=== PATIENT | female | born 1975 | race African-American/Black ===

== ENCOUNTER 2016-05-17 18:05 | Emergency (ER) | payer OTHER ==
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
[2016-05-17] MEDS ORDERED: ASPIRIN 81 MG TABLET, CHEWABLE PO ONE (18:33)
[2016-05-17] MEDS ORDERED: ASPIRIN 81 MG TABLET, CHEWABLE ONE (18:35)
[2016-05-17 19:01] LABS: ABSOLUTE EOSINOPHILS # (AUTO) 0.1 10^3/uL (0.0-0.6); ABSOLUTE LYMPHOCYTES (AUTO) 1.8 10^3/uL (0.5-4.7); ABSOLUTE MONOCYTES (AUTO) 0.4 10^3/uL (0.1-1.4); ABSOLUTE NEUT (AUTO) 2.8 10^3/uL (1.7-8.2); BASOPHILS % (AUTO) 0.9 % (0-2); EOSINOPHILS % (AUTO) 1.3 % (0-6); HEMATOCRIT 28.7 % (36.0-47.0); HEMOGLOBIN 8.8 g/dL (12.0-15.5); HGB HCT DIFFERENCE -2.3; LYMPHOCYTES % (AUTO) 35.5 % (13-45); MEAN CORPUSCULAR HEMOGLOBIN 24.7 pg (27.0-33.4); MEAN CORPUSCULAR HGB CONC 30.8 g/dL (32.0-36.0); MEAN CORPUSCULAR VOLUME 80 fl (80-97); MONOCYTES % (AUTO) 7.1 % (3-13); RED BLOOD COUNT 3.57 10^6/uL (3.72-5.28); RED CELL DISTRIBUTION WIDTH 15.5 % (11.5-14.0); SEGMENTED NEUTROPHILS % (AUTO) 55.2 % (42-78)
[2016-05-17 19:20] LABS: ALANINE AMINOTRANSFERASE 16 U/L (9-52); ALBUMIN 4.2 g/dL (3.5-5.0); ALKALINE PHOSPHATASE 80 U/L (38-126); ANION GAP 13 (5-19); ASPARTATE AMINO TRANSFERASE 23 U/L (14-36); BILIRUBIN,TOTAL 0.8 mg/dL (0.2-1.3); BLOOD UREA NITROGEN 9 mg/dL (7-20); CALCIUM 9.7 mg/dL (8.4-10.2); CARBON DIOXIDE 27 mmol/L (22-30); CHLORIDE 101 mmol/L (98-107); CREATININE RESULT 0.98 mg/dL (0.52-1.25); GLUCOSE 92 mg/dL (75-110); POTASSIUM 3.7 mmol/L (3.6-5.0); SODIUM 140.7 mmol/L (137-145); TOTAL PROTEIN 7.6 g/dL (6.3-8.2)
[2016-05-17] MEDS ORDERED: OXYCODONE-ACETAMINOPHEN 5-325 MG TABLET PO ONE (20:40)
[2016-05-17] MEDS ORDERED: KETOROLAC TROMETHAMINE 60 MG/2 ML SDV IM ONE (20:40)
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
--- NOTE | 2016-05-17 20:54 | EKG REPORT ---
SEVERITY:- BORDERLINE ECG - SINUS RHYTHM BORDERLINE T ABNORMALITIES, INFERIOR LEADS : Confirmed by: Nolan Diaz MD 17-May-2016 20:54:27
[2016-05-17 22:59] VITALS: BP 122/88
== END 2016-05-17 22:59 | disposition home or self-care (01) ==
LOC: ER 18:05
DX: S29.9XXA Unspecified injury of thorax, initial encounter (principal); M54.2 Cervicalgia; R07.9 Chest pain, unspecified; M54.9 Dorsalgia, unspecified; V49.40XA Driver injured in collision with unspecified motor vehicles in traffic accident, initial encounter; I10 Essential (primary) hypertension; Z88.5 Allergy status to narcotic agent
CPT/HCPCS: 93005; 99284; 96374; 36415; 85025; 80053; 73610; 71020; 73090; 72125; 93010; J1885

== ENCOUNTER 2016-06-02 01:25 | Emergency (ER) | payer OTHER ==
[2016-06-02] MEDS ORDERED: OXYCODONE-ACETAMINOPHEN 5-325 MG TABLET PO ONE (02:51)
--- NOTE | 2016-06-02 02:54 | ER Document Report ---
ED Extremity Problem, Lower - General Chief Complaint: Ankle Injury Stated Complaint: RIGHT ANKLE INJURY Time seen by provider: 02:52 Mode of Arrival: Wheelchair Information source: Patient TRAVEL OUTSIDE OF THE [place] IN LAST 30 DAYS: No - HPI Patient complains to provider of: Injury, Pain Location: Ankle Occurred: Just prior to arrival Where: Home Onset/Duration: Sudden Quality of pain: Achy Severity: Moderate Pain Level: 3 Recent injury: Yes Associated symptoms: Painful ambulation Exacerbated by: Movement, Walking Relieved by: Nothing Notes: Patient is a 40-year-old female presenting to the emergency room for complaints of pain to the back of her right ankle that started just prior to arrival, states she went to stand up and felt something pop over the Achilles, has been having pain since, it is worsened by movement or ambulation, she denies any numbness or tingling to the extremity, she does report a history of a previous injury to this foot, but has never had any surgery - Related Data Allergies/Adverse Reactions: hydrocodone Allergy (Verified 06/02/16 01:34) Past Medical History - General Information source: Patient - Social History Smoking Status: Never Smoker Chew tobacco use (# tins/day): No Frequency of alcohol use: None Drug Abuse: None Family History: Reviewed & Not Pertinent Patient has suicidal ideation: No Patient has homicidal ideation: No - Past Medical History Cardiac Medical History: Reports: Hx Hypertension Renal/ Medical History: Denies: Hx Peritoneal Dialysis Past Surgical History: Reports: Hx Cholecystectomy - Immunizations Immunizations up to date: Yes Hx Diphtheria, Pertussis, Tetanus Vaccination: Yes Review of Systems - Review of Systems Constitutional: No symptoms reported EENT: No symptoms reported Cardiovascular: No symptoms reported Respiratory: No symptoms reported Gastrointestinal: No symptoms reported Genitourinary: No symptoms reported Female Genitourinary: No symptoms reported Musculoskeletal: See HPI Skin: No symptoms reported Hematologic/Lymphatic: No symptoms reported Neurological/Psychological: No symptoms reported -: Yes All other systems reviewed and negative Physical Exam - Vital signs Vitals: Temp Pulse Resp BP Pulse Ox 98.5 F 100 18 137/89 H 100 06/02/16 01:35 06/02/16 01:35 06/02/16 01:35 06/02/16 01:35 06/02/16 01:35 Interpretation: Normal - Notes Notes: - General General appearance: Appears well, Alert In distress: None - HEENT Head: Normocephalic, Atraumatic Eyes: Normal Conjunctiva: Normal Extraocular movements intact: Yes Eyelashes: Normal Pupils: PERRL - Respiratory Respiratory status: No respiratory distress - Cardiovascular Rhythm: Regular - Abdominal Inspection: Normal - Back Back: Normal - Extremities General upper extremity: Normal inspection General lower extremity: Patient with tenderness to palpate over the l right Achilles tendon, there is no deformity, there is mild swelling, pain with range of motion testing, distal sensation and motor is intact with 2+ DP pulses - Neurological Neuro grossly intact: Yes Orientation: AAOx4 [place] Coma Scale Eye Opening: Spontaneous [place] Coma Scale Verbal: Oriented Moises Coma Scale Motor: Obeys Commands [place] Coma Scale Total: 15 - Psychological Associated symptoms: Normal affect, Normal mood - Skin Skin Temperature: Warm Skin Moisture: Dry Skin Color: Normal Course - Re-evaluation Re-evalutation: 06/02/16 03:37 Imaging findings were reviewed with patient at bedside, she was placed in a posterior ankle splint, provided with pain medication and information for follow -up with orthopedics, patient was advised to ice and elevate the affected extremity, limit weightbearing, return if symptoms worsen, patient acknowledges understanding and agreement with this plan - Vital Signs Vital signs: Temp Pulse Resp BP Pulse Ox 97.8 F 95 18 130/90 H 100 06/02/16 03:27 06/02/16 03:27 06/02/16 03:27 06/02/16 03:27 06/02/16 03:27 - Diagnostic Test Radiology reviewed: Image reviewed, Reports reviewed Procedures - Immobilization Right Ankle Time completed: 03:38 Pre-Proc Neuro Vasc Exam: Normal Immobilizer type: Posterior ankle Performed by: PCT Post-Proc Neuro Vasc Exam: Normal Alignment checked and good: Yes Discharge - Discharge Clinical Impression: Achilles tendinitis, left leg Condition: Stable Disposition: HOME, SELF-CARE Instructions: Use of Crutches ([facility]), Ice & Elevation ([facility]), Oral Narcotic Medication ([facility]), Soft Ankle Splint ([facility]), Tendonitis ([facility]) Additional Instructions: Follow up with your primary care provider and an orthopedic surgeon in one to 2 days. Return to the emergency room immediately if symptoms worsen or any additional concerns. Ice and elevate the affected extremity. Limit weightbearing. Prescriptions: Oxycodone HCl/Acetaminophen [Percocet 5-325 mg Tablet] 1 - 2 tab PO ASDIR PRN # 20 tablet PRN Reason: Forms: Return to Work Referrals: ANTON MURCIA MD [ACTIVE STAFF] - Follow up as needed
[2016-06-02 03:35] VITALS: BP 130/90
== END 2016-06-02 03:27 | disposition home or self-care (01) ==
LOC: ER 01:25
PROC: 2W3QX1Z Immobilization of Right Lower Leg using Splint (ICD-10-PCS; principal; 2016-06-02)
DX: M76.61 Achilles tendinitis, right leg (principal); I10 Essential (primary) hypertension; Z90.49 Acquired absence of other specified parts of digestive tract
CPT/HCPCS: 99283

== ENCOUNTER 2016-06-06 14:32 | Emergency (ER) | payer SELFPAY ==
--- NOTE | 2016-06-06 14:59 | ER Document Report ---
ED Medical Screen (RME) - General Chief Complaint: Ankle Pain Stated Complaint: ANKLE PAIN Notes: patient got out of bed on friday and felt a pop in her right ankle,has had pain and swelling since then. able to bear weight, rom intact I have greeted and performed a rapid initial assessment of this patient. A comprehensive ED assessment and evaluation of the patient, analysis of test results and completion of the medical decision making process will be conducted by additional ED providers. TRAVEL OUTSIDE OF THE [place] IN LAST 30 DAYS: No - Related Data Allergies/Adverse Reactions: hydrocodone Allergy (Verified 06/06/16 14:57) Past Medical History - Past Medical History Cardiac Medical History: Reports: Hx Hypertension Renal/ Medical History: Denies: Hx Peritoneal Dialysis Past Surgical History: Reports: Hx Cholecystectomy - Immunizations Immunizations up to date: Yes Hx Diphtheria, Pertussis, Tetanus Vaccination: Yes Physical Exam - Vital signs Vitals: Temp Pulse Resp BP Pulse Ox 98.6 F 86 16 138/86 H 100 06/06/16 14:52 06/06/16 14:52 06/06/16 14:52 06/06/16 14:52 06/06/16 14:52 Course - Vital Signs Vital signs: Temp Pulse Resp BP Pulse Ox 98.6 F 86 16 138/86 H 100 06/06/16 14:52 06/06/16 14:52 06/06/16 14:52 06/06/16 14:52 06/06/16 14:52
[2016-06-06] MEDS ORDERED: IBUPROFEN 800 MG TABLET PO ONE (15:00)
--- NOTE | 2016-06-06 16:03 | ER Document Report ---
ED Extremity Problem, Lower - General Time seen by provider: 16:05 Mode of Arrival: Wheelchair Information source: Patient TRAVEL OUTSIDE OF THE [place] IN LAST 30 DAYS: No - HPI Patient complains to provider of: Pain, Swelling Location: Ankle, Foot Occurred: Other - see HPI note Recent injury: Yes Associated symptoms: [place] a pop, Painful ambulation <MATTHEW LANE - Last Filed: 06/06/16 19:00> <JOLEEN LOPES - Last Filed: 06/06/16 22:55> - General Chief Complaint: Ankle Pain Stated Complaint: ANKLE PAIN Notes: Patient is a 40-year-old female presenting to the emergency department with complaints of pain to her right ankle and foot. Patient states that she stood up on her foot and she felt/heard a pop. Patient states that it came from the back of her foot where her Achilles is located. Patient states that she previously injured this foot and had to wear a splint, orthopedic boot, and a hard cast. Patient states that she is having some swelling and pain associated with the injury. Patient has an orthopedic to follow up with from her previous injury. Patient is allergic to hydrocodone. (MATTHEW LANE) - Related Data Allergies/Adverse Reactions: hydrocodone Allergy (Verified 06/06/16 14:57) Past Medical History - General Information source: Patient, [facility] Records - Social History Smoking Status: Never Smoker Chew tobacco use (# tins/day): No Frequency of alcohol use: None Drug Abuse: None Family History: None Patient has suicidal ideation: No Patient has homicidal ideation: No - Past Medical History Cardiac Medical History: Reports: Hx Hypertension Past Surgical History: Reports: Hx Cholecystectomy - Immunizations Immunizations up to date: Yes Hx Diphtheria, Pertussis, Tetanus Vaccination: Yes <MATTHEW LANE - Last Filed: 06/06/16 19:00> Review of Systems - Review of Systems Constitutional: No symptoms reported EENT: No symptoms reported Cardiovascular: No symptoms reported Respiratory: No symptoms reported Gastrointestinal: No symptoms reported Genitourinary: No symptoms reported Female Genitourinary: No symptoms reported Musculoskeletal: See HPI Skin: No symptoms reported Hematologic/Lymphatic: No symptoms reported Neurological/Psychological: No symptoms reported -: Yes All other systems reviewed and negative <MATTHEW LANE - Last Filed: 06/06/16 19:00> Physical Exam - Vital signs Interpretation: Normal - General General appearance: Appears well, Alert In distress: Mild - HEENT Head: Normocephalic, Atraumatic Eyes: Normal Pupils: PERRL Mucous membranes: Moist - Respiratory Respiratory status: No respiratory distress - Cardiovascular Rhythm: Regular - Abdominal Inspection: Normal Distension: No distension Bowel sounds: Normal Tenderness: Nontender Organomegaly: No organomegaly - Back Back: Normal, Nontender - Extremities General upper extremity: Normal inspection, Normal ROM, Normal strength Ankle: Other - tenderness to palpation over the right Achilles - Neurological Neuro grossly intact: Yes Cognition: Normal Orientation: AAOx4 [place] Coma Scale Eye Opening: Spontaneous [place] Coma Scale Verbal: Oriented [place] Coma Scale Motor: Obeys Commands [place] Coma Scale Total: 15 Speech: Normal Sensory: Normal - Psychological Associated symptoms: Normal affect, Normal mood - Skin Skin Temperature: Warm Skin Moisture: Dry <MATTHEW LANE - Last Filed: 06/06/16 19:00> Course <MATTHEW LANE - Last Filed: 06/06/16 19:00> - Diagnostic Test Radiology reviewed: Image reviewed, Reports reviewed <JOLEEN LOPES - Last Filed: 06/06/16 22:55> - Re-evaluation Re-evalutation: 06/06/16 Patient with no acute findings on x-ray. Patient has full range of motion although has pain over her Achilles. Patient has a boot at home. She is instructed to put that on and follow up with her orthopedic doctor that she has seen before for this issue. Patient will be discharged home with pain medication. Understands and agrees with plan. Stable for discharge home. (JOLEEN LOPES) - Vital Signs Vital signs: Temp Pulse Resp BP Pulse Ox 98.2 F 81 18 137/88 H 100 06/06/16 16:35 06/06/16 16:35 06/06/16 16:35 06/06/16 16:35 06/06/16 16:35 ([address]) (JOLEEN LOPES) Discharge <MATTHEW LANE - Last Filed: 06/06/16 19:00> <JOLEEN LOPES - Last Filed: 06/06/16 22:55> - Discharge Clinical Impression: Achilles tendinitis Qualifiers: Laterality: right Qualified Code(s): M76.61 - Achilles tendinitis, right leg Condition: Stable Disposition: HOME, SELF-CARE Instructions: Tendonitis ([facility]) Prescriptions: Tramadol HCl [Ultram] 50 mg PO BIDP PRN #20 tablet PRN Reason: Forms: Return to Work Referrals: LEONID CARTER MD [ACTIVE STAFF] - Follow up as needed Scribe Attestation: 06/06/16 22:54 I personally performed the services described in the documentation, reviewed and edited the documentation which was dictated to the scribe in my presence, and it accurately records my words and actions. (JOLEEN LOPES) Scribe Documentation - Scribe Written by Scribe:: Matthew Lane 06/06/16 19:04 acting as scribe for :: Jackson <MATTHEW LANE - Last Filed: 06/06/16 19:00>
[2016-06-06] MEDS ORDERED: OXYCODONE-ACETAMINOPHEN 5-325 MG TABLET PO ONE (16:16)
[2016-06-06 16:46] VITALS: BP 137/88
== END 2016-06-06 16:40 | disposition home or self-care (01) ==
LOC: ER 14:32
DX: M76.61 Achilles tendinitis, right leg (principal); M25.571 Pain in right ankle and joints of right foot; I10 Essential (primary) hypertension; Z90.49 Acquired absence of other specified parts of digestive tract; Z88.6 Allergy status to analgesic agent
CPT/HCPCS: 99283

== ENCOUNTER 2016-06-08 20:09 | Emergency (ER) | payer SELFPAY ==
[2016-06-08 20:27] VITALS: BP 143/83
--- NOTE | 2016-06-08 21:40 | ER Document Report ---
HPI - HPI Patient complains to provider of: ankle pain Context: Patient is a 40-year-old female who was seen here last Friday after she got out of bed and felt a pop in her ankle. Patient states that she is a previous Achilles tendon injury on her right ankle. She was seen and evaluated in emergency department told to wear a boot and follow-up with orthopedics. Patient states that she has not been able to get in to see orthopedics sent in the main reason she arrived to return to the emergency department tonight was that she needs a workup. Otherwise she states that her ears ankle is feeling better that she's been following her instructions and she's been able to drive without any difficulties. - REPRODUCTIVE Reproductive: DENIES: : Past Medical History - Social History Smoking Status: Current Every Day Smoker Family History: None - Past Medical History Cardiac Medical History: Reports: Hx Hypertension Renal/ Medical History: Denies: Hx Peritoneal Dialysis Past Surgical History: Reports: Hx Cholecystectomy - Immunizations Immunizations up to date: Yes Hx Diphtheria, Pertussis, Tetanus Vaccination: Yes Vertical Provider Document - CONSTITUTIONAL Exam Limitations: No Limitations General Appearance: WD/WN, No Apparent Distress - INFECTION CONTROL TRAVEL OUTSIDE OF THE [place] IN LAST 30 DAYS: No - RESPIRATORY O2 Sat by Pulse Oximetry: 99 - CARDIOVASCULAR Pulses: Normal: Dorsalis pedis - MUSCULOSKELETAL/EXTREMETIES Musculoskeletal/Extremeties: MAEW, FROM, Non-Tender, No Edema - NEURO Level of Consciousness: Awake, Alert, Appropriate Motor/Sensory: No Motor Deficit, No Sensory Deficit Course - Re-evaluation Re-evalutation: 06/08/16 21:34 Patient denies any new injury to that ankle or foot. She is able to bear weight without any difficulties and otherwise physical exam is benign. No indications for additional imaging at this time given no new injury or no new complaint. Will discharge patient home with a work note and can follow-up with orthopedics as scheduled. - Vital Signs Vital signs: Temp Pulse Resp BP Pulse Ox 98.3 F 73 20 143/83 H 99 06/08/16 20:25 06/08/16 20:25 06/08/16 20:25 06/08/16 20:25 06/08/16 20:25 Discharge - Discharge Clinical Impression: Ankle pain Qualifiers: Laterality: right Chronicity: acute Qualified Code(s): M25.571 - Pain in right ankle and joints of right foot Condition: Good Disposition: HOME, SELF-CARE Instructions: Jayson Wrap ([facility]), Use of Crutches ([facility]), Ice & Elevation ([facility]) Additional Instructions: Able to return to work without any restrictions or limitations. Please follow-up with orthopedics as scheduled. Forms: Work Clearance, Return to Work Referrals: LEONID CARTER MD [ACTIVE STAFF] - Follow up as needed
== END 2016-06-08 21:43 | disposition home or self-care (01) ==
LOC: ER 20:09
DX: M25.571 Pain in right ankle and joints of right foot (principal); X58.XXXA Exposure to other specified factors, initial encounter
CPT/HCPCS: 99283

== ENCOUNTER 2016-07-11 17:08 | Emergency (ER) | payer MEDICAID ==
[2016-07-11] MEDS ORDERED: IBUPROFEN 800 MG TABLET PO ONE (17:39)
--- NOTE | 2016-07-11 17:39 | ER Document Report ---
ED Medical Screen (RME) - General Stated Complaint: FEVER Time seen by provider: 17:38 Mode of Arrival: Ambulatory Information source: Patient Notes: 40-year-old female presents to ED for fever or chills body aches runny nose and cough 2 days. Temperature in the RME is 101.9. Last menstrual period was I have greeted and performed a rapid initial assessment of this patient. A comprehensive ED assessment and evaluation of the patient, analysis of test results and completion of medical decision making process will be conducted by an additional ED providers. TRAVEL OUTSIDE OF THE [place] IN LAST 30 DAYS: No - Related Data Allergies/Adverse Reactions: hydrocodone Allergy (Verified 06/06/16 14:57) Past Medical History - Past Medical History Cardiac Medical History: Reports: Hx Hypertension Renal/ Medical History: Denies: Hx Peritoneal Dialysis Past Surgical History: Reports: Hx Cholecystectomy - Immunizations Immunizations up to date: Yes Hx Diphtheria, Pertussis, Tetanus Vaccination: Yes Physical Exam - Vital signs Vitals: Temp Pulse Resp BP Pulse Ox 101.9 F H 112 H 18 149/91 H 100 07/11/16 17:13 07/11/16 17:13 07/11/16 17:13 07/11/16 17:13 07/11/16 17:13 Course - Vital Signs Vital signs: Temp Pulse Resp BP Pulse Ox 101.9 F H 112 H 18 149/91 H 100 07/11/16 17:13 07/11/16 17:13 07/11/16 17:13 07/11/16 17:13 07/11/16 17:13
[2016-07-11 18:41] LABS: APPEARANCE,URINE CLEAR; BILIRUBIN,URINE NEGATIVE (NEGATIVE); GLUCOSE, URINE NEGATIVE (NEGATIVE); KETONES,URINE NEGATIVE (NEGATIVE); LEUKOCYTE ESTERASE,URINE TRACE (NEGATIVE); NITRITE,URINE NEGATIVE (NEGATIVE); PROTEIN,URINE NEGATIVE (NEGATIVE); URINE SPECIFIC GRAVITY 1.005
--- NOTE | 2016-07-11 18:52 | ER Document Report ---
ED Flu Like - General Chief Complaint: Pain All Over Stated Complaint: FEVER Mode of Arrival: Ambulatory Notes: The patient is a 40-year-old female who presents with 2 days of body aches, fevers, chills, dry cough, cough and chest pain when she coughs. She did not get the flu shot this year. Her had similar symptoms. She denies rash , urinary symptoms, difficulty swallowing, recent travel, sick contacts, nausea , vomiting or abdominal pain. TRAVEL OUTSIDE OF THE [place] IN LAST 30 DAYS: No - Related Data Allergies/Adverse Reactions: hydrocodone Allergy (Verified 07/11/16 17:39) Past Medical History - General Information source: Patient - Social History Smoking Status: Never Smoker Chew tobacco use (# tins/day): No Frequency of alcohol use: None Drug Abuse: None Family History: None Patient has suicidal ideation: No Patient has homicidal ideation: No - Past Medical History Cardiac Medical History: Reports: Hx Hypertension Renal/ Medical History: Denies: Hx Peritoneal Dialysis Past Surgical History: Reports: Hx Cholecystectomy - Immunizations Immunizations up to date: Yes Hx Diphtheria, Pertussis, Tetanus Vaccination: Yes Review of Systems - Review of Systems Notes: REVIEW OF SYSTEMS: CONSTITUTIONAL: +fevers, +chills EENT: -eye pain, -difficulty swallowing, -nasal congestion CARDIOVASCULAR: +chest pain, -syncope. RESPIRATORY: +cough, +SOB GASTROINTESTINAL: -abdominal pain, -nausea, -vomiting, -diarrhea GENITOURINARY: -dysuria, -hematuria MUSCULOSKELETAL: -back pain, -neck pain SKIN: -rash or skin lesions. HEMATOLOGIC: -easy bruising or bleeding. LYMPHATIC: -swollen, enlarged glands. NEUROLOGICAL: -altered mental status or loss of consciousness, -headache, - neurologic symptoms PSYCHIATRIC: -anxiety, -depression. ALL OTHER SYSTEMS REVIEWED AND NEGATIVE. Physical Exam - Vital signs Vitals: Temp Pulse Resp BP Pulse Ox 101.9 F H 112 H 18 149/91 H 100 07/11/16 17:13 07/11/16 17:13 07/11/16 17:13 07/11/16 17:13 07/11/16 17:13 - Notes Notes: PHYSICAL EXAMINATION: GENERAL: No acute distress. HEAD: Atraumatic, normocephalic. EYES: Pupils equal round and reactive to light, extraocular movements intact, sclera anicteric, conjunctiva are normal. ENT: nares patent, oropharynx clear without exudates. Moist mucous membranes. NECK: Normal range of motion, supple without lymphadenopathy LUNGS: Breath sounds clear to auscultation bilaterally and equal. No wheezes rales or rhonchi. No respiratory distress. HEART: Tachycardia. ABDOMEN: Soft, nontender, normoactive bowel sounds. No guarding, no rebound. No masses appreciated. EXTREMITIES: Normal range of motion, no pitting or edema. No cyanosis. NEUROLOGICAL: Cranial nerves grossly intact. Normal speech, normal gait. Normal sensory, motor, and reflex exams. PSYCH: Normal mood, normal affect. SKIN: Warm, Dry, normal turgor, no rashes or lesions noted. Course - Re-evaluation Re-evalutation: Patient's symptoms consistent with viral illness. EKG and chest x-ray do not show any acute abnormalities. She is tolerating fluids. Flu negative. Instructed her about symptomatic treatment with fluids and antipyretics and following up at her primary care physician. Given strict return precautions and she understands. - Vital Signs Vital signs: Temp Pulse Resp BP Pulse Ox 101.9 F H 112 H 20 149/91 H 100 07/11/16 17:13 07/11/16 17:13 07/11/16 18:42 07/11/16 17:13 07/11/16 17:13 - Laboratory Laboratory results interpreted by me: 07/11/16 18:05 Urine Urobilinogen 2.0 H Ur Leukocyte Esterase TRACE H - Diagnostic Test Radiology reviewed: Image reviewed, Reports reviewed Radiology results interpreted by me: CXR: NAD - EKG Interpretation by [place] EKG shows normal: Sinus rhythm, [place], Intervals, QRS Complexes, ST-T Waves Rate: Tachycardia Discharge - Discharge Clinical Impression: Viral illness Condition: Stable Disposition: HOME, SELF-CARE Additional Instructions: UPPER RESPIRATORY ILLNESS: You have a viral infection of the respiratory passages -- a "cold." This common infection causes nasal congestion, drainage, and often sore throat and cough. It is highly contagious. The disease usually lasts about 10 to 14 days. There is no "cure" for the viral infection -- it must run its course. If there is a complication, such as bacterial infection in the nose, sinuses, middle ear, or bronchial tubes, antibiotics may be required. The antibiotics won't affect the virus. Drink plenty of fluids. A humidifier may help. An expectorant medication or decongestant may make you more comfortable. Use acetaminophen or ibuprofen for fever or aches. See the doctor if fever persists over two days, if there is any significant worsening of your symptoms, or if you simply fail to improve as expected. COUGH-SUPPRESSANT & EXPECTORANT MEDICATION: You are to use a cough medication as needed for relief of symptoms. This medicine is a combination of an expectorant (to make the mucous thinner and more easily "coughed up") and a cough suppressant (to reduce the frequency of coughing). The cough-suppressant medicine is related to narcotics. You may experience mild nausea and sleepiness. Some patients who are very sensitive to narcotics may have stomach pain from this medicine. Taking the medicine with food reduces these side effects. Do not drive or work with machinery until you know how this medicine affects you. The expectorant should have no side effects. Iodine-containing expectorants (such as organidin) should not be taken by persons with active thyroid disease unless approved by your doctor. Call the doctor if you develop shortness of breath, hives, rash, itching, lightheadedness, or severe nausea and vomiting. USE OF ACETAMINOPHEN (Tylenol): Acetaminophen may be taken for pain relief or fever control. It's much safer than aspirin, offering a wider range of "safe" dosages. It is safe during . Some brand names are Tylenol, Panadol, Datril, Anacin 3, Tempra, and Liquiprin. Acetaminophen can be repeated every four hours. The following are maximum recommended dosages: >89 pounds or adults 650 mg to 900 mg Acetaminophen can be repeated every four hours. Maximum dose not to exceed 4000 mg a day. SMOKING: If you smoke, you should stop smoking. The tar and chemicals in cigarette smoke are harmful. Smoking has been shown to cause: emphysema chronic bronchitis lung cancer mouth and throat cancer stomach and pancreas cancer premature aging defects In addition, smoking increases ear and lung infections in children of smokers. FOLLOW-UP CARE: If you have been referred to a physician for follow-up care, call the physician s office for an appointment as you were instructed or within the next two days. If you experience worsening or a significant change in your symptoms, notify the physician immediately or return to the Emergency Department at any time for re-evaluation.
[2016-07-11 19:19] VITALS: BP 132/85
--- NOTE | 2016-07-12 05:35 | EKG REPORT ---
SEVERITY:- ABNORMAL ECG - SINUS TACHYCARDIA PROBABLE LEFT ATRIAL ABNORMALITY NONSPECIFIC T ABNORMALITIES, INFERIOR LEADS : Confirmed by: Eve Nguyen MD 12-Jul-2016 05:34:51
== END 2016-07-11 19:19 | disposition home or self-care (01) ==
LOC: ER 17:08
DX: M79.1 Myalgia (principal); B34.9 Viral infection, unspecified; R50.9 Fever, unspecified; R05 Cough; R07.9 Chest pain, unspecified; I10 Essential (primary) hypertension; Z88.6 Allergy status to analgesic agent
CPT/HCPCS: 71020; 81001; 87070; 87804; 87880; 93005; 93010; 99284

== ENCOUNTER 2016-11-12 22:31 | Emergency (ER) | payer MEDICAID, OTHER ==
--- NOTE | 2016-11-12 23:11 | RADIOLOGY REPORT (SQ) ---
EXAM DESCRIPTION: ANKLE RIGHT COMPLETE COMPLETED DATE/TIME: 11/12/2016 11:02 pm REASON FOR STUDY: pain s/p injury COMPARISON: None. NUMBER OF VIEWS: Three views. TECHNIQUE: AP, lateral, and oblique radiographic images acquired of the right ankle. LIMITATIONS: None. FINDINGS: MINERALIZATION: Normal. BONES: No acute fracture or dislocation. No worrisome bone lesions. JOINTS: No effusions. SOFT TISSUES: No soft tissue swelling. No foreign body. OTHER: No other significant finding. IMPRESSION: NEGATIVE STUDY OF THE RIGHT ANKLE. NO RADIOGRAPHIC EVIDENCE OF ACUTE INJURY. TECHNICAL DOCUMENTATION: JOB ID: [id number] [employer] All Rights Reserved
--- NOTE | 2016-11-12 23:12 | RADIOLOGY REPORT (SQ) ---
EXAM DESCRIPTION: FOOT RIGHT COMPLETE COMPLETED DATE/TIME: 11/12/2016 11:02 pm REASON FOR STUDY: pain s/p injury COMPARISON: None. NUMBER OF VIEWS: Three views. TECHNIQUE: AP, lateral and oblique radiographic images acquired of the right foot. LIMITATIONS: None. FINDINGS: MINERALIZATION: Normal. BONES: No acute fracture or dislocation. No worrisome bone lesions. JOINTS: No effusions. SOFT TISSUES: No soft tissue swelling. No foreign body. Calcification Achilles tendon OTHER: No other significant finding. IMPRESSION: NEGATIVE STUDY OF THE RIGHT FOOT. NO RADIOGRAPHIC EVIDENCE OF ACUTE INJURY. TECHNICAL DOCUMENTATION: JOB ID: [id number] [employer]- All Rights Reserved
[2016-11-13] MEDS ORDERED: OXYCODONE-ACETAMINOPHEN 5-325 MG TABLET PO ONE (01:50)
--- NOTE | 2016-11-13 01:54 | ER Document Report ---
ED Extremity Problem, Lower - General Chief Complaint: Foot Pain Stated Complaint: RIGHT FOOT SWOLLEN Time Seen by Provider: 11/13/16 01:26 Mode of Arrival: Ambulatory Information source: Patient TRAVEL OUTSIDE OF THE [place] IN LAST 30 DAYS: No - HPI Patient complains to provider of: Injury, Pain, Swelling Location: Ankle, Foot Occurred: This evening Onset/Duration: Sudden Quality of pain: Achy Severity: Moderate Pain Level: 3 Context: Twisted Recent injury: Yes Associated symptoms: Painful ambulation Exacerbated by: Movement, Walking Relieved by: Nothing Notes: Patient is a 41-year-old female who presents to the emergency room complaining of right ankle and foot pain and swelling, states earlier this evening she stepped off of a curb and twisted her ankle, has a history of previous injury to this ankle, denies injury or pain elsewhere - Related Data Allergies/Adverse Reactions: hydrocodone Allergy (Verified 07/11/16 17:39) tramadol Allergy (Verified 11/12/16 22:52) Past Medical History - General Information source: Patient - Social History Smoking Status: Never Smoker Family History: None - Past Medical History Cardiac Medical History: Reports: Hx Hypertension Renal/ Medical History: Denies: Hx Peritoneal Dialysis Past Surgical History: Reports: Hx Cholecystectomy - Immunizations Immunizations up to date: Yes Hx Diphtheria, Pertussis, Tetanus Vaccination: Yes Review of Systems - Review of Systems Constitutional: No symptoms reported EENT: No symptoms reported Cardiovascular: No symptoms reported Respiratory: No symptoms reported Gastrointestinal: No symptoms reported Genitourinary: No symptoms reported Female Genitourinary: No symptoms reported Musculoskeletal: See HPI Skin: No symptoms reported Hematologic/Lymphatic: No symptoms reported Neurological/Psychological: No symptoms reported -: Yes All other systems reviewed and negative Physical Exam - Vital signs Vitals: Temp Pulse Resp BP Pulse Ox 98.1 F 82 16 145/89 H 100 11/12/16 22:48 11/12/16 22:48 11/12/16 22:48 11/12/16 22:48 11/12/16 22:48 - Notes Notes: - General General appearance: Appears well, Alert In distress: None - HEENT Head: Normocephalic, Atraumatic Eyes: Normal Conjunctiva: Normal Extraocular movements intact: Yes Eyelashes: Normal Pupils: PERRL - Respiratory Respiratory status: No respiratory distress - Cardiovascular Rhythm: Regular - Abdominal Inspection: Normal - Back Back: Normal - Extremities General upper extremity: Normal inspection General lower extremity: Right ankle with tenderness, swelling to the lateral malleolus, pain with range of motion testing, also mild swelling and tenderness over the Achilles, patient does have full range of motion with minimal pain, 2+ DP pulses, distal sensation and motor is intact - Neurological Neuro grossly intact: Yes Orientation: AAOx4 Moises Coma Scale Eye Opening: Spontaneous Moises Coma Scale Verbal: Oriented Moises Coma Scale Motor: Obeys Commands Moises Coma Scale Total: 15 - Psychological Associated symptoms: Normal affect, Normal mood - Skin Skin Temperature: Warm Skin Moisture: Dry Skin Color: Normal Course - Re-evaluation Re-evalutation: 11/13/16 01:52 Imaging findings were discussed with patient at bedside which are unremarkable, symptoms are consistent with ankle sprain, patient was placed in a posterior ankle splint, provided with pain medication and advised to follow-up with orthopedics, patient acknowledges understanding and agreement with this plan - Vital Signs Vital signs: Temp Pulse Resp BP Pulse Ox 98.1 F 82 16 145/89 H 100 11/12/16 22:48 11/12/16 22:48 11/12/16 22:48 11/12/16 22:48 11/12/16 22:48 - Diagnostic Test Radiology reviewed: Image reviewed, Reports reviewed Procedures - Immobilization Right Ankle Time completed: 01:53 Pre-Proc Neuro Vasc Exam: Normal Immobilizer type: Posterior ankle Performed by: PCT Post-Proc Neuro Vasc Exam: Normal Alignment checked and good: Yes Discharge - Discharge Clinical Impression: Right ankle sprain Qualifiers: Encounter type: initial encounter Involved ligament of ankle: unspecified ligament Qualified Code(s): S93.401A - Sprain of unspecified ligament of right ankle, initial encounter Condition: Stable Disposition: HOME, SELF-CARE Instructions: Ice Packs ([facility]), Oral Narcotic Medication ([facility]), Sprained Ankle ( [facility]), Splint Precautions ([facility]) Additional Instructions: Follow up with your primary care provider and an orthopedic surgeon in one to 2 days. Return to the emergency room immediately if symptoms worsen or any additional concerns. Ice and elevate the affected extremity. Limit weightbearing. Prescriptions: Oxycodone HCl/Acetaminophen [Percocet 5-325 mg Tablet] 1 - 2 tab PO ASDIR PRN # 15 tablet PRN Reason:
[2016-11-13 02:09] VITALS: BP 116/71
== END 2016-11-13 02:23 | disposition home or self-care (01) ==
LOC: ER 22:31
PROC: 2W3QX1Z Immobilization of Right Lower Leg using Splint (ICD-10-PCS; principal; 2016-11-12)
DX: S93.401A Sprain of unspecified ligament of right ankle, initial encounter (principal); M25.571 Pain in right ankle and joints of right foot; M79.671 Pain in right foot; X50.1XXA Overexertion from prolonged static or awkward postures, initial encounter; Y92.480 Sidewalk as the place of occurrence of the external cause; I10 Essential (primary) hypertension; Z88.5 Allergy status to narcotic agent
CPT/HCPCS: 99283

== ENCOUNTER 2017-02-24 18:54 | Emergency (ER) | payer SELFPAY ==
--- NOTE | 2017-02-24 20:10 | ER Document Report ---
HPI - HPI Patient complains to provider of: Right ankle pain Pain Level: 5 Context: Patient is a 41-year-old female who comes emergency department for chief complaint of right ankle and foot pain. She states that 2 days ago she accidentally inverted the foot when stepping off the curb, she reports shooting pains in the foot and some soft tissue swelling. She denies any other locations of pain including knee, hip, back. She takes no daily medications other than iron for anemia. - REPRODUCTIVE Reproductive: DENIES: : - DERM Skin Color: Normal Past Medical History - General Information source: Patient - Social History Smoking Status: Never Smoker Frequency of alcohol use: None Drug Abuse: None Lives with: Family Family History: None Patient has suicidal ideation: No Patient has homicidal ideation: No - Past Medical History Cardiac Medical History: Reports: Hx Hypertension Renal/ Medical History: Denies: Hx Peritoneal Dialysis Past Surgical History: Reports: Hx Cholecystectomy - Immunizations Immunizations up to date: Yes Hx Diphtheria, Pertussis, Tetanus Vaccination: Yes Vertical Provider Document - CONSTITUTIONAL General Appearance: WD/WN, No Apparent Distress - INFECTION CONTROL TRAVEL OUTSIDE OF THE [place] IN LAST 30 DAYS: No - HEENT HEENT: Atraumatic, Normocephalic - NECK Neck: Normal Inspection - RESPIRATORY Respiratory: Breath Sounds Normal, No Respiratory Distress O2 Sat by Pulse Oximetry: 100 - CARDIOVASCULAR Cardiovascular: Regular Rate, Regular Rhythm - GI/ABDOMEN Gastrointestinal: Abdomen Soft, Abdomen Non-Tender - MUSCULOSKELETAL/EXTREMETIES Musculoskeletal/Extremeties: Tender - Tenderness over the lateral malleolus, dorsal foot, and slightly at the insertion point of the plantar tendon on the right foot. No significant soft tissue swelling noted, no ecchymosis, no abnormal erythema, normal dorsalis pedis is palpated, normal capillary refill and sensation. Normal leg, knee, hip exam. Course - Vital Signs Vital signs: Temp Pulse Resp BP Pulse Ox 98.6 F 87 18 100 02/24/17 19:12 02/24/17 19:12 02/24/17 19:12 02/24/17 19:12 - Diagnostic Test Radiology reviewed: Image reviewed, Reports reviewed Procedures - Immobilization right ankle/foot Pre-Proc Neuro Vasc Exam: Normal Immobilizer type: Jayson wrap Performed by: RN Post-Proc Neuro Vasc Exam: Normal Alignment checked and good: Yes Discharge - Discharge Clinical Impression: Right ankle injury Qualifiers: Encounter type: initial encounter Qualified Code(s): S99.911A - Unspecified injury of right ankle, initial encounter Condition: Stable Disposition: HOME, SELF-CARE Additional Instructions: Your x-rays do not show fracture or other abnormality. Your examination is consistent with a sprain of the right ankle ligaments, recommendation is to ice 3-4 times a day, use the crutches and Jayson wrap, use the anti-inflammatory, and elevate your foot. Do this for about 3 days and then progress to normal activity as tolerated. Follow-up with primary care. Return to emergency department for any concerning symptoms including severe swelling or pain. Prescriptions: Naproxen [Naprosyn 375 Mg Tablet] 375 mg PO BID #20 tablet Forms: Return to Work Referrals: LETI CRAIG DO [Primary Care Provider] - Follow up as needed
--- NOTE | 2017-02-24 20:56 | RADIOLOGY REPORT (SQ) ---
EXAM DESCRIPTION: FOOT RIGHT COMPLETE COMPLETED DATE/TIME: 02/24/2017 8:28 pm REASON FOR STUDY: inversion injury, pain COMPARISON: None. NUMBER OF VIEWS: Three views. TECHNIQUE: AP, lateral and oblique radiographic images acquired of the right foot. LIMITATIONS: None. FINDINGS: MINERALIZATION: Normal. BONES: No acute fracture or dislocation. No worrisome bone lesions. JOINTS: No effusions. SOFT TISSUES: No soft tissue swelling. No foreign body. OTHER: No other significant finding. IMPRESSION: NEGATIVE STUDY OF THE RIGHT FOOT. NO RADIOGRAPHIC EVIDENCE OF ACUTE INJURY. TECHNICAL DOCUMENTATION: JOB ID: [id number] [employer]- All Rights Reserved
--- NOTE | 2017-02-24 20:59 | RADIOLOGY REPORT (SQ) ---
EXAM DESCRIPTION: ANKLE RIGHT COMPLETE COMPLETED DATE/TIME: 02/24/2017 8:28 pm REASON FOR STUDY: inversion injury, pain COMPARISON: None. NUMBER OF VIEWS: Three views. TECHNIQUE: AP, lateral, and oblique radiographic images acquired of the right ankle. LIMITATIONS: None. FINDINGS: MINERALIZATION: Normal. BONES: No acute fracture or dislocation. No worrisome bone lesions. JOINTS: No effusions. SOFT TISSUES: No soft tissue swelling. No foreign body. OTHER: No other significant finding. IMPRESSION: NEGATIVE STUDY OF THE RIGHT ANKLE. NO RADIOGRAPHIC EVIDENCE OF ACUTE INJURY. TECHNICAL DOCUMENTATION: JOB ID: [id number] [employer]- All Rights Reserved
[2017-02-24 21:20] VITALS: BP 134/84
== END 2017-02-24 21:20 | disposition home or self-care (01) ==
LOC: ER 18:54
DX: S99.911A Unspecified injury of right ankle, initial encounter (principal); M25.571 Pain in right ankle and joints of right foot; X50.0XXA Overexertion from strenuous movement or load, initial encounter; Y92.480 Sidewalk as the place of occurrence of the external cause; I10 Essential (primary) hypertension
CPT/HCPCS: 99283

== ENCOUNTER 2017-05-20 17:41 | Emergency (ER) | payer MEDICAID, OTHER ==
[2017-05-20 20:56] VITALS: BP 142/92
--- NOTE | 2017-05-20 21:49 | ER Document Report ---
ED General - General Chief Complaint: Sore Throat Stated Complaint: SORE THROAT Time Seen by Provider: 05/20/17 21:27 TRAVEL OUTSIDE OF THE [place] IN LAST 30 DAYS: No - HPI Notes: 41-year-old female presents emergency department complaining of a two-week history of cough, rhinorrhea, sore throat, frontal and ethmoid sinus pressure associated with soreness in her chest and abdomen from coughing. States that it got better for a few hours and then came back with vengeance 2 days ago and she has been feeling worse than ever. Associated with subjective fevers and chills and discolored nasal discharge. - Related Data Allergies/Adverse Reactions: hydrocodone Allergy (Verified 07/11/16 17:39) tramadol Allergy (Verified 11/12/16 22:52) Past Medical History - General Information source: Patient - Social History Smoking Status: Never Smoker Frequency of alcohol use: None Drug Abuse: None Family History: None Patient has suicidal ideation: No Patient has homicidal ideation: No - Past Medical History Cardiac Medical History: Reports: Hx Hypertension Renal/ Medical History: Denies: Hx Peritoneal Dialysis Past Surgical History: Reports: Hx Cholecystectomy - Immunizations Immunizations up to date: Yes Hx Diphtheria, Pertussis, Tetanus Vaccination: Yes Review of Systems - Review of Systems Constitutional: See HPI, Chills EENT: See HPI Cardiovascular: See HPI Respiratory: Cough, Hurts to breathe. denies: Hemoptysis, Short of breath Musculoskeletal: See HPI - Myalgias. Physical Exam - Vital signs Vitals: Temp Pulse Resp BP Pulse Ox 98.5 F 92 16 142/92 H 78 L 05/20/17 18:05 05/20/17 18:05 05/20/17 18:05 05/20/17 18:05 05/20/17 18:05 Notes: Correction pulse ox is 98% on room air not 78% on room air. - Notes Notes: GENERAL: Alert, interacts well. No acute distress. HEAD: Normocephalic, atraumatic EYES: Pupils equal, round and reactive to light, extraocular movements intact. ENT: Oral mucosa moist, tongue midline. Turbinate edema, occluded on the left, clear rhinorrhea on the right. Ethmoid and right frontal sinus tenderness to palpation. NECK: Full range of motion, supple, trachea midline. LUNGS: Clear to auscultation bilaterally, no wheezes, rales or rhonchi, no respiratory distress. HEART: Regular rate and rhythm, no murmurs, gallops, rubs. EXTREMITIES: Moves all 4 extremities spontaneously, no edema, radial and dorsalis pedis pulses 2/4 bilaterally. No cyanosis. NEUROLOGICAL: Alert and oriented x3, normal speech. PSYCH: Normal mood, normal affect. SKIN: Warm, Dry, normal turgor, no rashes or lesions noted. Course - Re-evaluation Re-evalutation: 05/20/17 21:43 Consistent with viral upper respiratory infection that after 2 weeks of symptoms acutely worsened and is now a bacterial sinusitis. Patient will be treated with Augmentin, nasal steroids and nasal saline rinses. Patient will be discharged home. - Vital Signs Vital signs: Temp Pulse Resp BP Pulse Ox 98.5 F 92 16 142/92 H 78 L 05/20/17 18:05 05/20/17 18:05 05/20/17 18:05 05/20/17 18:05 05/20/17 18:05 Discharge - Discharge Clinical Impression: Acute bacterial sinusitis Hypertension Qualifiers: Hypertension type: essential hypertension Qualified Code(s): I10 - Essential ( primary) hypertension Condition: Stable Disposition: HOME, SELF-CARE Additional Instructions: Sinusitis You have sinusitis, an infection of the sinus cavities of the face. The sinuses are air-filled chambers which open into the inside of the nose. Bacteria and pus fill a sinus, causing pain, drainage, and fever. Sinusitis is treated with antibiotics. Often, expectorants (to thin the sinus mucous) or decongestants (to reduce swelling) are prescribed as well. Healing requires seven to 10 days. Avoid chemical fumes, pollens, dusts, and smoke (especially cigarette smoke ). Keep the air humidified in your bedroom and work area and take plenty of liquids by mouth. This condition can be serious if the infection spreads. If your symptoms worsen, or if you develop severe headache, high fever, stiff neck, or a rash, you must call the doctor or return for re-evaluation. Please use nasal saline rinses such as a NetiPot or NeilMed Sinus Rinses. Please use a nasal steroid such as Flonase or Nasonex as directed on the box. Prescriptions: Amox Tr/Potassium Clavulanate [Augmentin 875-125 Tablet] 1 tab PO BID 10 Days tablet Mometasone Furoate [Nasonex] 1 spray NS Q12 #1 spray.pump Forms: Elevated Blood Pressure Referrals: PAO JACKSON MD [COMMUNITY BASED STAFF] - Follow up in 1 week
== END 2017-05-20 22:18 | disposition home or self-care (01) ==
LOC: ER 17:41
DX: J01.90 Acute sinusitis, unspecified (principal); B96.89 Other specified bacterial agents as the cause of diseases classified elsewhere; J02.9 Acute pharyngitis, unspecified; R05 Cough; R07.1 Chest pain on breathing; J34.89 Other specified disorders of nose and nasal sinuses; R68.83 Chills (without fever); I10 Essential (primary) hypertension; Z88.5 Allergy status to narcotic agent
CPT/HCPCS: 99282

== ENCOUNTER 2018-02-18 17:13 | Emergency (ER) | payer SELFPAY ==
--- NOTE | 2018-02-18 18:13 | ER Document Report ---
ED GI/ - General Chief Complaint: Flank Pain Stated Complaint: BACK PAIN, BLOOD IN URINE Time Seen by Provider: 02/18/18 18:00 Mode of Arrival: Ambulatory Information source: Patient Notes: 42-year-old female presents to ED for complaint of to the right flank and blood in her urine times a week. She states the pain is not getting better but she has no history of kidney stones. Patient urine is positive for UTI but we will get the CT to rule out a stone as well. TRAVEL OUTSIDE OF THE [place] IN LAST 30 DAYS: No - HPI Patient complains to provider of: Flank pain, Hematuria Onset: Last week Timing/Duration: Intermittent Quality of pain: Sharp, Throbbing Severity at maximum: Moderate Severity in ED: Moderate Pain Level: 3 Location: Right flank Vaginal bleeding (Compared to normal period): None Associated symptoms: Nausea, Urinary frequency, Urinary urgency Exacerbated by: Movement, Walking Relieved by: Denies Similar symptoms previously: Yes Recently seen / treated by doctor: No - Related Data Allergies/Adverse Reactions: hydrocodone Allergy (Verified 02/18/18 17:18) tramadol Allergy (Verified 02/18/18 17:18) Past Medical History - General Information source: Patient - Social History Smoking Status: Never Smoker Cigarette use (# per day): No Chew tobacco use (# tins/day): No Smoking Education Provided: No Frequency of alcohol use: None Drug Abuse: None Lives with: Family Family History: None Patient has suicidal ideation: No Patient has homicidal ideation: No - Medical History Medical History: Other - anemic - Past Medical History Cardiac Medical History: Reports: Hx Hypertension Pulmonary Medical History: Reports: None EENT Medical History: Reports: None Neurological Medical History: Reports: None Endocrine Medical History: Reports: None Renal/ Medical History: Reports: None Malignancy Medical History: Reports: None GI Medical History: Reports: None Musculoskeletal Medical History: Reports None Skin Medical History: Reports None Psychiatric Medical History: Reports: None Traumatic Medical History: Reports: None Infectious Medical History: Reports: None Past Surgical History: Reports: Hx Cholecystectomy - Immunizations Immunizations up to date: Yes Hx Diphtheria, Pertussis, Tetanus Vaccination: Yes Review of Systems - Review of Systems Constitutional: No symptoms reported EENT: No symptoms reported Cardiovascular: No symptoms reported Respiratory: No symptoms reported Gastrointestinal: Nausea Genitourinary: Frequency, Flank pain, Urgency Female Genitourinary: No symptoms reported Musculoskeletal: No symptoms reported Skin: No symptoms reported Hematologic/Lymphatic: No symptoms reported Neurological/Psychological: No symptoms reported -: Yes All other systems reviewed and negative Physical Exam - Vital signs Vitals: Temp Pulse Resp BP Pulse Ox 98.7 F 92 16 143/90 H 99 02/18/18 17:52 02/18/18 17:52 02/18/18 17:52 02/18/18 17:52 02/18/18 17:52 Interpretation: Normal - General General appearance: Appears well, Alert - HEENT Head: Normocephalic, Atraumatic Eyes: Normal Pupils: PERRL - Respiratory Respiratory status: No respiratory distress Chest status: Nontender Breath sounds: Normal Chest palpation: Normal - Cardiovascular Rhythm: Regular Heart sounds: Normal auscultation Murmur: No - Abdominal Inspection: Normal Distension: No distension Bowel sounds: Normal Tenderness: Nontender, Tender - Flank and suprapubic Organomegaly: No organomegaly - Back Back: Normal, Tender, CVA tenderness - Right - Extremities General upper extremity: Normal inspection, Nontender, Normal color, Normal ROM , Normal temperature General lower extremity: Normal inspection, Nontender, Normal color, Normal ROM , Normal temperature, Normal weight bearing. No: Osiel's sign - Neurological Neuro grossly intact: Yes Cognition: Normal Orientation: AAOx4 [place] Coma Scale Eye Opening: Spontaneous [place] Coma Scale Verbal: Oriented [place] Coma Scale Motor: Obeys Commands [place] Coma Scale Total: 15 Speech: Normal Motor strength normal: LUE, RUE, LLE, RLE Sensory: Normal - Psychological Associated symptoms: Normal affect, Normal mood - Skin Skin Temperature: Warm Skin Moisture: Dry Skin Color: Normal Course - Re-evaluation Re-evalutation: 02/19/18 00:59 Was negative for any stones. She did have a UTI and was treated with Bactrim. Patient was discharged home with prescription for Bactrim. Patient was instructed to continue using Azo for the discomfort as well as Tylenol or Motrin. Patient was discharged home to follow-up with her primary doctor to have a repeat urine. - Vital Signs Vital signs: Temp Pulse Resp BP Pulse Ox 98.5 F 82 16 140/88 H 100 02/18/18 21:01 02/18/18 21:01 02/18/18 21:01 02/18/18 21:01 02/18/18 21:01 - Laboratory Result Diagrams: 02/18/18 18:18 02/18/18 18:18 Laboratory results interpreted by me: 02/18/18 02/18/18 02/18/18 18:18 18:18 18:18 RBC 3.70 L Hgb 10.7 L Hct 31.7 L RDW 15.4 H Est GFR (Non-Af Amer) 53 L Urine Protein 100 H Urine Blood SMALL H Urine Nitrite POSITIVE H Urine Urobilinogen 4.0 H Ur Leukocyte Esterase LARGE H - Diagnostic Test Radiology reviewed: Image reviewed, Reports reviewed Discharge - Discharge Clinical Impression: UTI (urinary tract infection) Qualifiers: Urinary tract infection type: site unspecified Hematuria presence: with hematuria Qualified Code(s): N39.0 - Urinary tract infection, site not specified Condition: Stable Disposition: HOME, SELF-CARE Instructions: Family Physicians / Practices Additional Instructions: URINARY TRACT INFECTION: Your evaluation indicates that you have a urinary tract infection. This is due to germs growing in the bladder. This is a common problem. This infection usually responds quickly to antibiotics. Your antibiotic should be taken exactly as prescribed. Drink plenty of fluids -- three to four quarts a day. Occasionally, a bladder anesthetic will be prescribed to help stop the feeling of urgency until the antibiotic has a chance to clear the infection. This may cause your urine to be dark orange. Certain urine infections require a culture. If the doctor obtained a culture, the results will be back in two days. You should call to see if a change in treatment is needed. A repeat urinalysis after you finish treatment is often recommended. The physician will let you know if further testing is required. Call the doctor if you develop fever, chills, flank pain, inability to urinate, or blood in the urine. TRIMETHOPRIM-SULFA: You have been given a prescription for trimethoprim-sulfa (TMS, Septra, Bactrim). This is a combination antibiotic of the sulfa class, often used for urinary tract infections, middle ear infections, bronchitis, shigella intestinal infection, and Pneumocystis pneumonia. TMS is usually well-tolerated. Occasional side effects include nausea and decreased appetite. Septra is not recommended for infants less than two months of age. Do not take this medication if you have experienced severe side effects or allergy to sulfa medicine. You should stop this medicine at once and contact your physician if you develop any rash, joint pain, shortness of breath, bruising, or jaundice ( yellow color in the skin), or if you develop any other new or unusual symptoms. URINARY ANESTHETIC AGENT: You have been given a medication (Pyridium) for urinary tract discomfort. This medicine numbs the lining of the bladder and urethra, resulting in less pain, burning, and urgency. You may take it as needed, according to instructions. When the symptoms resolve, you can stop this medication (be sure to continue any other medications the doctor has given you). This medicine turns the urine a dark orange. It may stain underwear. Occasionally, it can cause nausea. Return for evaluation if there are any unexpected effects, such as itching, hives, or shortness of breath. FOLLOW-UP CARE: If you have been referred to a physician for follow-up care, call the physician s office for an appointment as you were instructed or within the next two days. If you experience worsening or a significant change in your symptoms, notify the physician immediately or return to the Emergency Department at any time for re-evaluation. Prescriptions: Phenazopyridine HCl [Pyridium] 200 mg PO TIDP PRN #15 tablet PRN Reason: Sulfamethoxazole/Trimethoprim [Bactrim Ds Tablet] 1 each PO BID #20 tablet Forms: Elevated Blood Pressure, Return to Work
[2018-02-18 18:36] LABS: ABSOLUTE EOSINOPHILS # (AUTO) 0.1 10^3/uL (0.0-0.6); ABSOLUTE LYMPHOCYTES (AUTO) 2.1 10^3/uL (0.5-4.7); ABSOLUTE MONOCYTES (AUTO) 0.4 10^3/uL (0.1-1.4); ABSOLUTE NEUT (AUTO) 3.7 10^3/uL (1.7-8.2); BASOPHILS % (AUTO) 0.7 % (0-2); EOSINOPHILS % (AUTO) 1.7 % (0-6); HEMATOCRIT 31.7 % (36.0-47.0); HEMOGLOBIN 10.7 g/dL (12.0-15.5); LYMPHOCYTES % (AUTO) 33.8 % (13-45); MEAN CORPUSCULAR HEMOGLOBIN 28.9 pg (27.0-33.4); MEAN CORPUSCULAR HGB CONC 33.8 g/dL (32.0-36.0); MEAN CORPUSCULAR VOLUME 86 fl (80-97); MONOCYTES % (AUTO) 5.7 % (3-13); PLATELET COUNT 413 10^3/uL (150-450); RED CELL DISTRIBUTION WIDTH 15.4 % (11.5-14.0); SEGMENTED NEUTROPHILS % (AUTO) 58.1 % (42-78); TOTAL CELLS COUNTED % (AUTO) 100 %; WHITE BLOOD COUNT 6.3 10^3/uL (4.0-10.5)
[2018-02-18 18:39] LABS: APPEARANCE,URINE CLOUDY; BILIRUBIN,URINE NEGATIVE (NEGATIVE); COLOR,URINE YELLOW; GLUCOSE, URINE NEGATIVE (NEGATIVE); KETONES,URINE NEGATIVE (NEGATIVE); LEUKOCYTE ESTERASE,URINE LARGE (NEGATIVE); NITRITE,URINE POSITIVE (NEGATIVE); PROTEIN,URINE 100 mg/dL (NEGATIVE); URINE SPECIFIC GRAVITY 1.019
[2018-02-18 18:58] LABS: ALANINE AMINOTRANSFERASE 17 U/L (9-52); ALBUMIN 4.6 g/dL (3.5-5.0); ALKALINE PHOSPHATASE 77 U/L (38-126); ANION GAP 11 (5-19); ASPARTATE AMINO TRANSFERASE 24 U/L (14-36); BILIRUBIN,DIRECT 0.3 mg/dL (0.0-0.4); BILIRUBIN,TOTAL 1.3 mg/dL (0.2-1.3); BLOOD UREA NITROGEN 9 mg/dL (7-20); CALCIUM 9.6 mg/dL (8.4-10.2); CARBON DIOXIDE 29 mmol/L (22-30); CHLORIDE 100 mmol/L (98-107); GLUCOSE 93 mg/dL (75-110); POTASSIUM 3.8 mmol/L (3.6-5.0); SODIUM 140.4 mmol/L (137-145); TOTAL PROTEIN 7.8 g/dL (6.3-8.2)
--- NOTE | 2018-02-18 19:52 | RADIOLOGY REPORT (SQ) ---
EXAM DESCRIPTION: CT LTD RENAL STONE PROTOCOL ON COMPLETED DATE/TIME: 02/18/2018 7:35 pm REASON FOR STUDY: right flank pain COMPARISON: None. TECHNIQUE: CT scan of the abdomen and pelvis performed without intravenous or oral contrast. Images reviewed with lung, soft tissue, and bone windows. Reconstructed coronal and sagittal MPR images revi ewed. All images stored on PACS. All CT scanners at this facility use dose modulation, iterative reconstruction, and/or weight based d osing when appropriate to reduce radiation dose to as low as reasonably achievable (ALARA). [facility]: Dose Right [facility]: CareDose [facility]: Dose Right [facility]: Teradose 4D [facility]: [employer] RADIATION DOSE: CT Rad equipment meets quality standard of care and radiation dose reduction techniq ues were employed. CTDIvol: 16.1 mGy. DLP: 867 mGy-cm.mGy. LIMITATIONS: None. FINDINGS: LOWER CHEST: No significant findings. No nodules or infiltrates. NON-CONTRASTED LIVER, SPLEEN, ADRENALS: Evaluation limited by lack of IV contrast. No identified sign ificant masses. PANCREAS: No masses. No peripancreatic inflammatory changes. GALLBLADDER: Surgically absent. RIGHT KIDNEY AND URETER: No suspicious masses. Assessment limited by lack of IV contrast. No signif icant calcifications. No hydronephrosis or hydroureter. LEFT KIDNEY AND URETER: No suspicious masses. Assessment limited by lack of IV contrast. There appe ars to be a vascular calcification on image 34 series 3. No urinary calculi are seen. No hydroneph rosis or hydroureter. AORTA AND RETROPERITONEUM: No aneurysm. No retroperitoneal masses or adenopathy. BOWEL AND PERITONEAL CAVITY: No obvious masses or inflammatory changes. No free fluid. APPENDIX: Not identified. No pericecal inflammatory changes are present. PELVIS, BLADDER, AND ABDOMINAL WALL:No abnormal masses. No free fluid. Bladder normal. BONES: No significant findings. OTHER: No other significant finding. IMPRESSION: There is a left renal calcification that appears to be vascular. There is no ureteral s tone or obstruction. The appendix is not identified, but no pericecal inflammatory changes are prese nt. COMMENT: Quality ID # [id number]: Final reports with documentation of one or more dose reduction techniques (e.g., Automated exposure control, adjustment of the mA and/or kV according to patient size, use of iterative reconstruction technique) TECHNICAL DOCUMENTATION: JOB ID: [id number] [employer]- All Rights Reserved Reading location - IP/workstation name: [email or web address]
[2018-02-18 20:05] LABS: CHLAM PCR NOT DETECTED (NOT DETECT); GON PCR NOT DETECTED (NOT DETECT)
[2018-02-18] MEDS ORDERED: SULFAMETHOXAZOLE/TRIMETHOPRIM 800-160 MG TABLET PO ONE (20:37)
[2018-02-18] MEDS ORDERED: PHENAZOPYRIDINE HCL 200 MG TABLET PO ONE (20:38)
[2018-02-18 21:02] VITALS: BP 140/88
== END 2018-02-18 21:01 | disposition home or self-care (01) ==
LOC: ER 17:13
DX: N39.0 Urinary tract infection, site not specified (principal); R10.9 Unspecified abdominal pain; R31.9 Hematuria, unspecified; M54.9 Dorsalgia, unspecified; R35.0 Frequency of micturition; R39.15 Urgency of urination; I10 Essential (primary) hypertension
CPT/HCPCS: 99284; 36415; 87086; 84702; 85025; 87088; 80053; 81001; 87186; 87491; 87591; 76380; J3490

== ENCOUNTER 2018-07-20 03:58 | Emergency (ER) | payer SELFPAY ==
[2018-07-20] MEDS ORDERED: ACETAMINOPHEN 325 MG TABLET PO ONE (05:07)
--- NOTE | 2018-07-20 05:27 | RADIOLOGY REPORT (SQ) ---
EXAM DESCRIPTION: XR CHEST 2 VIEWS COMPLETED DATE/TME: 07/20/2018 04:30 CLINICAL HISTORY: 42 years, Female, SOB COMPARISON: 07/11/2016 chest NUMBER OF VIEWS: 2 TECHNIQUE: 2 view chest LIMITATIONS: None. FINDINGS: Heart size normal. Lungs clear. No pneumothorax IMPRESSION: Negative chest copyright 2010 [employer]- All Rights Reserved
[2018-07-20 06:42] LABS: ABSOLUTE BASOPHILS # (AUTO) 0.1 10^3/uL (0.0-0.2); ABSOLUTE EOSINOPHILS # (AUTO) 0.2 10^3/uL (0.0-0.6); ABSOLUTE LYMPHOCYTES (AUTO) 1.5 10^3/uL (0.5-4.7); ABSOLUTE MONOCYTES (AUTO) 0.3 10^3/uL (0.1-1.4); ABSOLUTE NEUT (AUTO) 3.1 10^3/uL (1.7-8.2); BASOPHILS % (AUTO) 1.2 % (0-2); EOSINOPHILS % (AUTO) 3.3 % (0-6); HEMATOCRIT 31.1 % (36.0-47.0); HEMOGLOBIN 10.1 g/dL (12.0-15.5); LYMPHOCYTES % (AUTO) 29.2 % (13-45); MEAN CORPUSCULAR HEMOGLOBIN 27.4 pg (27.0-33.4); MEAN CORPUSCULAR HGB CONC 32.4 g/dL (32.0-36.0); MEAN CORPUSCULAR VOLUME 85 fl (80-97); PLATELET COUNT 412 10^3/uL (150-450); RED BLOOD COUNT 3.68 10^6/uL (3.72-5.28); RED CELL DISTRIBUTION WIDTH 17.5 % (11.5-14.0); SEGMENTED NEUTROPHILS % (AUTO) 60.3 % (42-78); TOTAL CELLS COUNTED % (AUTO) 100 %; WHITE BLOOD COUNT 5.2 10^3/uL (4.0-10.5)
[2018-07-20 06:58] LABS: ALANINE AMINOTRANSFERASE 17 U/L (9-52); ALKALINE PHOSPHATASE 78 U/L (38-126); ANION GAP 11 (5-19); ASPARTATE AMINO TRANSFERASE 23 U/L (14-36); BILIRUBIN,DIRECT 0.3 mg/dL (0.0-0.4); BILIRUBIN,TOTAL 0.6 mg/dL (0.2-1.3); BLOOD UREA NITROGEN 9 mg/dL (7-20); CALCIUM 9.5 mg/dL (8.4-10.2); CARBON DIOXIDE 26 mmol/L (22-30); CHLORIDE 104 mmol/L (98-107); GLUCOSE 88 mg/dL (75-110); POTASSIUM 3.8 mmol/L (3.6-5.0); SODIUM 140.5 mmol/L (137-145); TOTAL PROTEIN 7.2 g/dL (6.3-8.2)
--- NOTE | 2018-07-20 07:20 | ER Document Report ---
ED General - General Chief Complaint: Congestion Stated Complaint: SHORTNESS OF BREATH Time Seen by Provider: 07/20/18 04:30 Notes: Patient is a 42-year-old female presents to the emergency department for generalized cough, congestion, sore throat for the last 2 weeks. Patient states approximately 7 days ago she was to her primary care provider and diagnosed with bronchitis. States she was placed on a Z-Ramez and is taking medications as pr escribed. States she was also placed on Flonase. Patient states she is continued with a generalized cough and now developed a sore throat. Patient is denying any fever. Patient states "I just feel wiped out." Patient states she does have a history of iron deficiency anemia has been taking her iron and vitamin D as prescribed. States the last time she felt "wiped out." Her hemoglobin was at 8. Patient states she has never had a blood transfusion but she has had iron transfusions. Allergies: Hydrocodone, tramadol Surgical history, cholecystectomy TRAVEL OUTSIDE OF THE [place] IN LAST 30 DAYS: No - Related Data Allergies/Adverse Reactions: hydrocodone Allergy (Verified 02/18/18 17:18) tramadol Allergy (Verified 02/18/18 17:18) Past Medical History - General Information source: Patient - Social History Smoking Status: Never Smoker Frequency of alcohol use: None Drug Abuse: None Family History: None Patient has suicidal ideation: No Patient has homicidal ideation: No - Past Medical History Cardiac Medical History: Reports: Hx Hypertension Renal/ Medical History: Denies: Hx Peritoneal Dialysis Past Surgical History: Reports: Hx Cholecystectomy - Immunizations Immunizations up to date: Yes Hx Diphtheria, Pertussis, Tetanus Vaccination: Yes Review of Systems - Review of Systems Constitutional: See HPI EENT: See HPI Cardiovascular: Dyspnea. denies: Chest pain, Heart racing Respiratory: See HPI Gastrointestinal: No symptoms reported Genitourinary: No symptoms reported Female Genitourinary: No symptoms reported Musculoskeletal: No symptoms reported Skin: No symptoms reported Hematologic/Lymphatic: See HPI Neurological/Psychological: No symptoms reported Physical Exam - Vital signs Vitals: Temp Pulse Resp BP Pulse Ox 98.2 F 82 16 127/85 H 97 07/20/18 04:05 07/20/18 04:05 07/20/18 04:05 07/20/18 04:05 07/20/18 04:05 - Notes Notes: GENERAL: Alert, interacts well. No acute distress. HEAD: Normocephalic, atraumatic. No frontal or maxillary sinus tenderness noted EYES: Pupils equal, round, and reactive to light. Extraocular movements intact. ENT: Oral mucosa moist, tongue midline. Nares patent, nonerythematous, nonbulging bilaterally,TM's intact. Pharynx minorly erythematous, no palatal petechiae or exudate noted, tonsils +1 bilaterally NECK: Full range of motion. Supple. Trachea midline. No lymphadenopathy appreciated LUNGS: Clear to auscultation bilaterally, no wheezes, rales, or rhonchi. No respiratory distress. HEART: Regular rate and rhythm. No murmur ABDOMEN: Soft, non-tender. Non-distended. Bowel sounds present in all 4 quadrants. EXTREMITIES: Moves all 4 extremities spontaneously. No edema, normal radial and dorsalis pedis pulses bilaterally. No cyanosis. BACK: no cervical, thoracic, lumbar midline tenderness. No saddle anesthesia, normal distal neurovascular exam. NEUROLOGICAL: Alert and oriented x3. Normal speech. cranial nerves II through XII grossly intact. PSYCH: Normal affect, normal mood. SKIN: Warm, dry, normal turgor. No rashes or lesions noted. Course - Re-evaluation Re-evalutation: 07/20/18 07:18 Patient's chest x-ray reveals no signs of pneumonia, pneumothorax, rib fractures. Patient's rapid strep test was also negative. Patient's routine labs do reveal hemoglobin and hematocrit of 10.1 and 31.1 respectively. It is noted that patient has had a hemoglobin and hematocrit noted at this facility at 8.8 and 28.7 respectively. Discussed continued use of her iron and vitamin D supplements. Likely diagnosis of a viral upper respiratory infection. Discussed supportive treatments and close follow-up with primary care provider. Patient voices understanding and is stable for discharge. - Vital Signs Vital signs: Temp Pulse Resp BP Pulse Ox 98.0 F 87 18 129/78 H 100 07/20/18 07:05 07/20/18 07:05 07/20/18 07:05 07/20/18 07:05 07/20/18 07:05 - Laboratory Result Diagrams: 07/20/18 06:31 07/20/18 06:31 Laboratory results interpreted by me: 07/20/18 06:31 RBC 3.68 L Hgb 10.1 L Hct 31.1 L RDW 17.5 H Discharge - Discharge Clinical Impression: Upper respiratory infection Qualifiers: URI type: unspecified viral URI Qualified Code(s): J06.9 - Acute upper respiratory infection, unspecified Condition: Stable Disposition: HOME, SELF-CARE Instructions: Upper Respiratory Illness ([facility]), Viral Syndrome ([facility]) Additional Instructions: Your symptoms are most likely due to a viral infection it should resolve over the next 7-14 days. You should take nuur-vak-[id number] guanfacine per bottle instructions to help thin the mucus. For nasal congestion: I would recommend t hat you get [id number] oxymetazoline also known is afrin. Use only per bottle instructions and be sure to never use this for more than 3 days if you can develop severe rebound congestion. You may also use tylenol or ibuprofen as needed for aches and thorat discomfort. Please be sure to drink plenty of fluids and get rest. Return to the emergency department he began having difficulty breathing, chest pain, persistent vomiting, or any other symptoms that are concerning to you. Prescriptions: Benzonatate [Tessalon Perles 100 mg Capsule] 100 mg PO Q8HP PRN #40 capsule PRN Reason: Pseudoephedrine HCl [Sudafed 12 Hour] 120 mg PO BID #16 tablet.er Forms: Return to Work Referrals: [facility] [Provider Group] - Follow up as needed OSCAR SURESH MD [ACTIVE STAFF] - Follow up as needed
[2018-07-20 07:31] VITALS: BP 123/70
== END 2018-07-20 07:32 | disposition home or self-care (01) ==
LOC: ER 03:58
DX: J06.9 Acute upper respiratory infection, unspecified (principal); B97.89 Other viral agents as the cause of diseases classified elsewhere; J40 Bronchitis, not specified as acute or chronic; J02.9 Acute pharyngitis, unspecified; R05 Cough; I10 Essential (primary) hypertension; D50.9 Iron deficiency anemia, unspecified; Z79.899 Other long term (current) drug therapy; Z88.5 Allergy status to narcotic agent
CPT/HCPCS: 36415; 71046; 80053; 85025; 87070; 87880; 99283

== ENCOUNTER 2018-08-18 02:22 | Emergency (ER) | payer SELFPAY ==
[2018-08-18] MEDS ORDERED: KETOROLAC TROMETHAMINE 60 MG/2 ML SDV IM ONE (03:07)
[2018-08-18] MEDS ORDERED: ACETAMINOPHEN 325 MG TABLET PO ONE (03:07)
[2018-08-18] MEDS ORDERED: LIDOCAINE 5% (700 MG) TRANSDERMAL ADH..PATCH TP ONE (03:07)
--- NOTE | 2018-08-18 03:50 | RADIOLOGY REPORT (SQ) ---
EXAM DESCRIPTION: XR KNEE 3 VIEWS COMPLETED DATE/TME: 08/18/2018 03:08 CLINICAL HISTORY: 42 years, Female, fall, pain COMPARISON: None. NUMBER OF VIEWS: Three TECHNIQUE: Three views of the left knee LIMITATIONS: None. FINDINGS: There is no acute fracture or dislocation. No large soft tissue swelling. No radiopaque foreign body. IMPRESSION: No acute fracture or dislocation copyright 2010 [employer]- All Rights Reserved
--- NOTE | 2018-08-18 03:51 | RADIOLOGY REPORT (SQ) ---
EXAM DESCRIPTION: XR CHEST 2 VIEWS COMPLETED DATE/TME: 08/18/2018 03:08 CLINICAL HISTORY: 42 years, Female, fall, pain COMPARISON: 07/20/2018 NUMBER OF VIEWS: Two TECHNIQUE: Two views of the chest LIMITATIONS: None. FINDINGS: Lungs are clear. The heart is normal in size. There is no pneumothorax or pleural effusion. There is no acute fracture IMPRESSION: No acute cardiopulmonary abnormality copyright 2010 [employer]- All Rights Reserved
--- NOTE | 2018-08-18 04:16 | ER Document Report ---
ED General - General Chief Complaint: Fall Injury Stated Complaint: FALL Time Seen by Provider: 08/18/18 03:04 Notes: Patient is a 42-year-old female without chronic medical problems who presents after a fall. States that she tripped over a wooden block in her driveway falling down onto her left knee and left lower ribs. She states that she had an immediate onset of throbbing, severe, constant pain to the affected area since that time. Movement worsens the pain. Nothing improves the pain. No history of similar injuries in the past. Did not hit her head or neck. States that she has been able to walk since the fall but with significant pain to the left knee. She has not seen her primary care physician regarding today's concerns. Denies any difficulty breathing, vomiting, weakness or numbness. TRAVEL OUTSIDE OF THE [place] IN LAST 30 DAYS: No - Related Data Allergies/Adverse Reactions: hydrocodone Allergy (Verified 02/18/18 17:18) tramadol Allergy (Verified 02/18/18 17:18) Past Medical History - General Information source: Patient - Social History Smoking Status: Never Smoker Frequency of alcohol use: None Drug Abuse: None Lives with: Spouse/Significant other Family History: Reviewed & Not Pertinent Patient has suicidal ideation: No Patient has homicidal ideation: No - Past Medical History Cardiac Medical History: Reports: Hx Hypertension Renal/ Medical History: Denies: Hx Peritoneal Dialysis Past Surgical History: Reports: Hx Cholecystectomy - Immunizations Immunizations up to date: Yes Hx Diphtheria, Pertussis, Tetanus Vaccination: Yes Review of Systems - Review of Systems Notes: Constitutional: Negative for fever. Eyes: Negative for visual changes. ENT: Negative for facial injury Cardiovascular: Positive for chest injury. Respiratory: Negative for shortness of breath. Gastrointestinal: Negative for abdominal injury. Genitourinary: Negative for genital injury Musculoskeletal: Positive for left knee injury and pain Skin: Negative for laceration/abrasions. Neurological: Negative for head injury. Physical Exam - Vital signs Vitals: Temp Pulse Resp BP Pulse Ox 97.9 F 92 15 131/86 H 99 08/18/18 02:28 08/18/18 02:28 08/18/18 02:28 08/18/18 02:28 08/18/18 02:28 Interpretation: Normal Notes: PHYSICAL EXAMINATION: GENERAL: Well-appearing, no acute distress. HEAD: Atraumatic, normocephalic. EYES: Pupils equal round and reactive to light, extraocular movements intact, sclera anicteric, conjunctiva are normal. ENT: nares patent, no oral pharyngeal trauma. No hemotympanum, no Pulido's sign, no raccoon eyes. NECK: No midline cervical spine tenderness. Patient able to move their head to 45 bilaterally without any discomfort. LUNGS: Breath sounds clear to auscultation bilaterally and equal. No wheezes rales or rhonchi. HEART: Regular rate and rhythm without murmurs. CHEST WALL: No ecchymosis over the chest wall. Pain on palpation of left lower rib spaces. ABDOMEN: Soft, nontender, normoactive bowel sounds. No guarding, no rebound. No abdominal bruising EXTREMITIES: Normal range of motion, no pitting or edema. No long bone deformities. BACK: No midline spinal tenderness, step-offs, or deformities. NEUROLOGICAL: Face symmetric. Tongue protrudes midline. Extraocular motions intact. Pupils are 2 mm and equally reactive. Normal speech, normal gait. 5 out of 5 strength in both the distal and proximal upper and lower extremities bilaterally. Sensation is grossly intact throughout. Finger to nose testing normal. Pronator drift normal. PSYCH: Normal mood, normal affect. SKIN: Warm, Dry, normal turgor, no rashes or lesions noted. Course - Re-evaluation Re-evalutation: 08/18/18 04:12 Presentation of a well patient in no acute distress, vitals within normal limits after a fall. She did not hit her head or neck. States she only hit onto her left knee and left lower ribs. Patient has no focal deformities or limited range of motion in any joint space although complained of pain to the left knee. Left knee x-ray is normal. Patient was also complaining of left lower rib pain with some mild tenderness to the area on palpation. Chest x-ray without evidence of pulmonary contusion, rib fractures or pneumothoraces. Chest and abdominal exam are otherwise benign without bruising over the chest or abdominal wall. Patient has no flank tenderness. There is no obvious findings on trauma exam today and therefore no further imaging or evaluation will be obtained at this time. At this time will discharge with return precautions and follow-up recommendations. Verbal discharge instructions given a the bedside and opportunity for questions given. Medication warnings reviewed. Patient is in ag reement with this plan and has verbalized understanding of return precautions and the need for primary care follow-up in the next 24-72 hours. - Vital Signs Vital signs: Temp Pulse Resp BP Pulse Ox 97.9 F 92 15 131/86 H 99 08/18/18 02:28 08/18/18 02:28 08/18/18 02:28 08/18/18 02:28 08/18/18 02:28 - Diagnostic Test Radiology reviewed: Image reviewed, Reports reviewed Radiology results interpreted by me: 08/18/18 04:14 Left knee x-ray: No acute fracture or dislocation Chest x-ray: No acute infiltrate or pneumothorax Discharge - Discharge Clinical Impression: Rib pain on left side Left knee pain Qualifiers: Chronicity: acute Qualified Code(s): M25.562 - Pain in left knee Condition: Good Disposition: HOME, SELF-CARE Additional Instructions: You have been seen in the Emergency Department (ED) today following a fall. Your xrays of your knee and ribs are normal. Your workup today did not reveal any injuries that require you to stay in the hospital. You can expect, though, to be stiff and sore for the next several days. You can take ibuprofen 600 mg every 6 hours as needed for pain. You can apply a hot pack or electric heating pad to the sore areas. You can also use topical "Aspercreme with lidocaine" to sore areas as needed. Please follow up with your primary care doctor as soon as possible regarding today's ED visit and your recent accident. Call your doctor or return to the ED if you develop a sudden or severe headache, confusion, slurred speech, facial droop, weakness or numbness in any arm or leg, extreme fatigue, vomiting more than two times, severe abdominal pain, or other symptoms that concern you.
[2018-08-18 04:40] VITALS: BP 126/78
== END 2018-08-18 04:41 | disposition home or self-care (01) ==
LOC: ER 02:22
DX: R07.81 Pleurodynia (principal); M25.562 Pain in left knee; W19.XXXA Unspecified fall, initial encounter; I10 Essential (primary) hypertension
CPT/HCPCS: 99283; 96372; 71046; 73562; J1885

== ENCOUNTER 2019-01-25 01:41 | Emergency (ER) | payer SELFPAY ==
[2019-01-25 01:49] VITALS: BP 128/70
--- NOTE | 2019-01-25 02:36 | RADIOLOGY REPORT (SQ) ---
2 VIEWS OF RIGHT ANKLE EXAM DATE: 01/25/2019 12:00 AM CDT HISTORY: Lateral ankle pain. Fall.. COMPARISON: None. FINDINGS: The ankle mortise is preserved on these nonstress views. No acute fracture is seen. There is mild surrounding soft tissue swelling. There is ossification of the distal Achilles tendon. IMPRESSION: No acute fracture or malalignment.
[2019-01-25] MEDS ORDERED: KETOROLAC TROMETHAMINE 10 MG TABLET PO ONE (02:41)
--- NOTE | 2019-01-25 03:12 | ER Document Report ---
ED Extremity Problem, Lower - General Chief Complaint: Ankle Injury Stated Complaint: RIGHT ANKLE PAIN Time Seen by Provider: 01/25/19 02:34 TRAVEL OUTSIDE OF THE [place] IN LAST 30 DAYS: No - HPI Notes: This is a 43-year-old female who presents today with a complaint of right ankle injury. Patient says that she slipped and fell at home, twisting her ankle. She denies any other injuries. She describes her symptoms as mild to moderate. Pain is worse with weightbearing. No other injuries. - Related Data Allergies/Adverse Reactions: hydrocodone Allergy (Verified 02/18/18 17:18) tramadol Allergy (Verified 02/18/18 17:18) Past Medical History - Social History Smoking Status: Never Smoker Family History: Reviewed & Not Pertinent Patient has suicidal ideation: No Patient has homicidal ideation: No - Past Medical History Cardiac Medical History: Reports: Hx Hypertension Renal/ Medical History: Denies: Hx Peritoneal Dialysis Past Surgical History: Reports: Hx Cholecystectomy - Immunizations Immunizations up to date: Yes Hx Diphtheria, Pertussis, Tetanus Vaccination: Yes Review of Systems - Review of Systems Cardiovascular: denies: Chest pain, Palpitations Gastrointestinal: denies: Abdominal pain, Diarrhea, Nausea Musculoskeletal: Joint pain, Other - Ankle pain. -: Yes All other systems reviewed and negative Physical Exam - Vital signs Vitals: Temp Pulse Resp BP Pulse Ox 97.8 F 86 16 128/70 H 100 01/25/19 01:48 01/25/19 01:48 01/25/19 01:48 01/25/19 01:48 01/25/19 01:48 - General General appearance: Appears well, Alert - Respiratory Respiratory status: No respiratory distress Chest status: Nontender Breath sounds: Normal Chest palpation: Normal - Cardiovascular Rhythm: Regular Heart sounds: Normal auscultation Murmur: No - Abdominal Inspection: Normal Distension: No distension Bowel sounds: Normal Tenderness: Nontender Organomegaly: No organomegaly - Extremities General upper extremity: Normal inspection, Nontender, Normal color, Normal ROM, Normal temperature General lower extremity: Normal inspection, Normal color, Normal ROM, Normal temperature. No: Osiel's sign Ankle: Tender - There is slight tenderness of the right lateral malleolus. No swelling or deformity. Normal Arellano test. Normal distal neurovascular exam.. No: Deformity, Ecchymosis Course - Re-evaluation Re-evalutation: 01/25/19 03:12 Differential diagnosis includes ankle sprain versus fracture. 01/25/19 03:12 Patient reevaluated. Patient is doing well. Stable for discharge. Follow-up discussed. X-rays negative. - Vital Signs Vital signs: Temp Pulse Resp BP Pulse Ox 97.8 F 86 16 128/70 H 100 01/25/19 01:48 01/25/19 01:48 01/25/19 01:48 01/25/19 01:48 01/25/19 01:48 Discharge - Discharge Clinical Impression: Ankle sprain Qualifiers: Encounter type: initial encounter Involved ligament of ankle: unspecified ligament Laterality: right Qualified Code(s): S93.401A - Sprain of unspecified ligament of right ankle, initial encounter Condition: Good Disposition: HOME, SELF-CARE Instructions: Sprained Ankle ([facility]), Splint Precautions ([facility]) Additional Instructions: Rest, ice compresses, elevation will help. Prescriptions: Naproxen 500 mg PO BID PRN #14 tablet PRN Reason: Referrals: SARAH BARRERA DO [ACTIVE STAFF] - Follow up in 3-5 days
== END 2019-01-25 03:34 | disposition home or self-care (01) ==
LOC: ER 01:41
DX: S93.401A Sprain of unspecified ligament of right ankle, initial encounter (principal); W01.0XXA Fall on same level from slipping, tripping and stumbling without subsequent striking against object, initial encounter; Y92.009 Unspecified place in unspecified non-institutional (private) residence as the place of occurrence of the external cause; I10 Essential (primary) hypertension; Z90.49 Acquired absence of other specified parts of digestive tract
CPT/HCPCS: 73600; L1902; J3490; 99283

== ENCOUNTER 2019-06-20 16:10 | Emergency (ER) | payer SELFPAY ==
[2019-06-20] MEDS ORDERED: OXYCODONE-ACETAMINOPHEN 5-325 MG TABLET PO ONE (17:37)
--- NOTE | 2019-06-20 17:39 | ER Document Report ---
ED Medical Screen (RME) - General Chief Complaint: Foot Pain Stated Complaint: LEFT FOOT/LEG SWOLLEN PAIN Time Seen by Provider: 06/20/19 17:33 Mode of Arrival: Ambulatory Information source: Patient Notes: Patient presents complaining of left lower extremity pain and swelling since 11 AM. Patient denies any injury to the leg. I have greeted and performed a rapid initial assessment of this patient. A comprehensive ED assessment and evaluation of the patient, analysis of test results and completion of the medical decision making process will be conducted by additional ED providers. TRAVEL OUTSIDE OF THE [place] IN LAST 30 DAYS: No - Related Data Allergies/Adverse Reactions: hydrocodone Allergy (Verified 06/20/19 17:33) tramadol Allergy (Verified 06/20/19 17:33) Past Medical History - Past Medical History Cardiac Medical History: Reports: Hx Hypertension Renal/ Medical History: Denies: Hx Peritoneal Dialysis Past Surgical History: Reports: Hx Cholecystectomy - Immunizations Immunizations up to date: Yes Hx Diphtheria, Pertussis, Tetanus Vaccination: Yes Physical Exam - Vital signs Vitals: Temp Pulse Resp BP Pulse Ox 98.3 F 75 18 141/83 H 100 06/20/19 17:04 06/20/19 17:04 06/20/19 17:04 06/20/19 17:04 06/20/19 17:04 - General General appearance: Appears well, Alert Notes: Tenderness to left calf and left foot, 2+ dorsalis pedis pulse, normal skin color and temperature to foot Course - Vital Signs Vital signs: Temp Pulse Resp BP Pulse Ox 98.3 F 75 18 141/83 H 100 06/20/19 17:04 06/20/19 17:04 06/20/19 17:04 06/20/19 17:04 06/20/19 17:04
[2019-06-20 18:26] LABS: ABSOLUTE EOSINOPHILS # (AUTO) 0.1 10^3/uL (0.0-0.6); ABSOLUTE MONOCYTES (AUTO) 0.3 10^3/uL (0.1-1.4); ABSOLUTE NEUT (AUTO) 3.1 10^3/uL (1.7-8.2); BASOPHILS % (AUTO) 0.4 % (0-2); EOSINOPHILS % (AUTO) 1.5 % (0-6); HEMATOCRIT 36.4 % (36.0-47.0); HEMOGLOBIN 12.3 g/dL (12.0-15.5); LYMPHOCYTES % (AUTO) 35.6 % (13-45); MEAN CORPUSCULAR HEMOGLOBIN 30.9 pg (27.0-33.4); MEAN CORPUSCULAR HGB CONC 33.8 g/dL (32.0-36.0); MEAN CORPUSCULAR VOLUME 91 fl (80-97); MONOCYTES % (AUTO) 5.6 % (3-13); PLATELET COUNT 316 10^3/uL (150-450); RED BLOOD COUNT 3.99 10^6/uL (3.72-5.28); RED CELL DISTRIBUTION WIDTH 19.8 % (11.5-14.0); SEGMENTED NEUTROPHILS % (AUTO) 56.9 % (42-78); TOTAL CELLS COUNTED % (AUTO) 100 %; WHITE BLOOD COUNT 5.5 10^3/uL (4.0-10.5)
[2019-06-20 18:51] LABS: ANION GAP 5 (5-19); BLOOD UREA NITROGEN 6 mg/dL (7-20); CALCIUM 9.1 mg/dL (8.4-10.2); CARBON DIOXIDE 31 mmol/L (22-30); CHLORIDE 102 mmol/L (98-107); CREATINE KINASE 110 U/L (30-135); GLUCOSE 97 mg/dL (75-110); POTASSIUM 3.8 mmol/L (3.6-5.0)
--- NOTE | 2019-06-20 21:48 | ER Document Report ---
ED Extremity Problem, Lower - General Chief Complaint: Leg Pain Stated Complaint: LEFT FOOT/LEG SWOLLEN PAIN Time Seen by Provider: 06/20/19 17:33 Mode of Arrival: Ambulatory Notes: Patient is a 43-year-old female that comes to the emergency department for chief complaint of swelling in her left leg, she states it hurts in her left calf and at her left ankle. This started suddenly at about 11 AM. She denies injury, fever/chills, any orthopedic surgeries. She denies smoking, recent travel or surgery. She states a family member did have a blood clot. Patient is treated for allergies and GERD, she has had a cholecystectomy, she denies medical history otherwise. TRAVEL OUTSIDE OF THE [place] IN LAST 30 DAYS: No - Related Data Allergies/Adverse Reactions: hydrocodone Allergy (Verified 06/20/19 17:33) tramadol Allergy (Verified 06/20/19 17:33) Past Medical History - General Information source: Patient - Social History Smoking Status: Never Smoker Chew tobacco use (# tins/day): No Frequency of alcohol use: None Drug Abuse: None Lives with: Family Family History: Reviewed & Not Pertinent Patient has suicidal ideation: No Patient has homicidal ideation: No - Past Medical History Cardiac Medical History: Reports: Hx Hypertension Renal/ Medical History: Denies: Hx Peritoneal Dialysis GI Medical History: Reports: Hx Gastroesophageal Reflux Disease Past Surgical History: Reports: Hx Cholecystectomy - Immunizations Immunizations up to date: Yes Hx Diphtheria, Pertussis, Tetanus Vaccination: Yes Review of Systems - Review of Systems Constitutional: No symptoms reported EENT: No symptoms reported Cardiovascular: No symptoms reported Respiratory: No symptoms reported Gastrointestinal: No symptoms reported Genitourinary: No symptoms reported Female Genitourinary: No symptoms reported Skin: No symptoms reported Hematologic/Lymphatic: See HPI Neurological/Psychological: No symptoms reported Physical Exam - Vital signs Vitals: Temp Pulse Resp BP Pulse Ox 98.3 F 75 18 141/83 H 100 06/20/19 17:04 06/20/19 17:04 06/20/19 17:04 06/20/19 17:04 06/20/19 17:04 - Notes Notes: GENERAL: Alert, interacts well. No acute distress. HEAD: Normocephalic, atraumatic. EYES: Pupils equal, round, and reactive to light. Extraocular movements intact. ENT: Oral mucosa moist, tongue midline. Oropharynx unremarkable. Airway patent. LUNGS: Clear to auscultation bilaterally, no wheezes, rales, or rhonchi. No respiratory distress. HEART: Regular rate and rhythm. No murmur ABDOMEN: Soft, non-tender. Non-distended. EXTREMITIES: Moves all 4 extremities spontaneously. There is slight soft tissue swelling in the left lower extremity, very slight edema with no significant pitting, mainly noted over the pretibial area. Normal range of motion of all the joints, no erythema, significant tenderness, or signs of trauma. Unremarkable extremities otherwise. BACK: no cervical, thoracic, lumbar midline tenderness. No saddle anesthesia, normal distal neurovascular exam. Moves all extremities in full range of motion. NEUROLOGICAL: Alert and oriented x3. Normal speech. Cranial nerves II through XII grossly intact. PSYCH: Normal affect, normal mood. SKIN: Warm, dry, normal turgor. No rashes or lesions noted. Course - Re-evaluation Re-evalutation: Preliminary results of the venous Doppler are negative. Patient has very slight soft tissue swelling in the lower extremity, full range of motion of the joints, no erythema, no signs of trauma, no reported trauma. I suspect a venous component. Patient was given anti-inflammatories, compression stockings, discussed follow-up and return precautions in detail. Patient states appreciation and agreement. - Vital Signs Vital signs: Temp Pulse Resp BP Pulse Ox 98.3 F 66 18 130/93 H 100 06/20/19 17:04 06/20/19 23:03 06/20/19 23:03 06/20/19 23:03 06/20/19 23:03 - Laboratory Result Diagrams: 06/20/19 18:03 06/20/19 18:03 Laboratory results interpreted by me: 06/20/19 06/20/19 18:03 18:03 RDW 19.8 H Carbon Dioxide 31 H BUN 6 L Discharge - Discharge Clinical Impression: Pain of left lower extremity Condition: Stable Disposition: HOME, SELF-CARE Additional Instructions: Your labs do not show any concerning findings, your ultrasound/Doppler is negative for clots or concerning findings in your leg. To reduce the swelling I recommend the compression stocking, you can wear this at night, elevate when possible. Take the anti-inflammatory as prescribed. Symptoms should simply resolve with time. Follow-up with primary care. Return for any worsening symptoms including developing or spreading redness, fever, severe worsening pain or swelling, or any other concerning symptoms. Prescriptions: Compress.stocking,Knee,Reg,Lrg [Relief Knee Open Toe] 1 each MC QHS #2 each Naproxen 500 mg PO BID PRN #20 tablet PRN Reason: Forms: Parent Work Note, Return to Work
[2019-06-20] MEDS ORDERED: KETOROLAC TROMETHAMINE 60 MG/2 ML SDV IM ONE (21:52)
[2019-06-20 23:04] VITALS: BP 130/93
--- NOTE | 2019-06-21 09:45 | XCELERA REPORT ---
[address] [facility] [address] Lower Extremity Venous Evaluation Procedure: Color flow and duplex imaging of the veins of the left lower extremity as well as the right Common Femoral vein. Right Sided Venous Evaluation The right common femoral vein is fully compressible. Spontaneous and phasic flow is present in the right common femoral vein. Left Sided Venous Evaluation Normal vessel filling wall to wall, compression and augmentation as well as Colour flow down to the infrageniculate veins. Interpretation Summary No duplex evidence of DVT or obstruction in the left lower extremity nor in the right Common Femoral vein. Name: CHEMA SADLER Age: 43 yrs Gender: Female : 1975 Patient Status: Emergency Patient Location: ER Study Date: 06/20/2019 08:37 PM Reason For Study: LLE pain, swelling Ordering Physician: JENNIFFER SALINAS Performed By: Betty Collins : JENNIFFER SALINAS > Mohsen Acosta
== END 2019-06-20 22:48 | disposition home or self-care (01) ==
LOC: ER 16:10
DX: M79.662 Pain in left lower leg (principal); M25.572 Pain in left ankle and joints of left foot; R60.0 Localized edema; I10 Essential (primary) hypertension; M79.89 Other specified soft tissue disorders; K21.9 Gastro-esophageal reflux disease without esophagitis; T78.40XA Allergy, unspecified, initial encounter; Z88.6 Allergy status to analgesic agent; Z88.5 Allergy status to narcotic agent; Z79.899 Other long term (current) drug therapy
CPT/HCPCS: 99284; 96372; 36415; 82550; 85025; 80048; 93971 ×2; J1885

== ENCOUNTER → 2020-01-11 | Outpatient (CLI) | payer MEDICAID ==
--- NOTE | 2020-01-11 15:58 | RADIOLOGY REPORT (SQ) ---
EXAM DESCRIPTION: VENOUS UNILATERAL LOWER IMAGES COMPLETED DATE/TIME: 01/11/2020 3:36 pm REASON FOR STUDY: RLE PAIN M79.661 PAIN IN RIGHT LOWER LEG COMPARISON: None. TECHNIQUE: Dynamic and static miller scale and color images acquired of the right leg venous system. S elected spectral images acquired with additional compression and augmentation maneuvers. The contrala teral common femoral vein and saphenofemoral junction were also imaged. Images stored on PACS. LIMITATIONS: None. FINDINGS: COMMON FEMORAL: Normal phasicity, compression and augmentation. No visualized echogenic ma terial on miller scale. No defects on color images. FEMORAL: Normal compression and augmentation. No visualized echogenic material on miller scale. No defe cts on color images. POPLITEAL: Normal compression, augmentation. No visualized echogenic material on miller scale. No defec ts on color images. CALF VESSELS: Normal compression, augmentation. No visualized echogenic material on miller scale. No de fects on color images. GSV and SSV: Normal compression, augmentation. No visualized echogenic material on miller scale. No def ects on color images. ANY DEEP VENOUS INSUFFICIENCY: Not evaluated. ANY EVIDENCE OF POPLITEAL CYST: No. OTHER: No other significant finding. CONTRALATERAL COMMON FEMORAL VEIN AND SAPHENOFEMORAL JUNCTION: Normal phasicity, compression and augmentation. No visualized echogenic material on miller scale. No de fects on color images. IMPRESSION: NO EVIDENCE DVT OR SVT IN THE RIGHT LEG. TECHNICAL DOCUMENTATION: JOB ID: [id number] 2010 [employer]- All Rights Reserved Reading location - IP/workstation name: [email or web address]
== END ==
LOC: SP 14:14
PROVIDERS: ATTEND Physician Assistant
DX: M79.661 Pain in right lower leg (principal)
CPT/HCPCS: 93971

== ENCOUNTER 2020-02-24 05:20 | Day surgery (SDC) | payer MEDICAID ==
[2020-02-21 09:39] LABS: HEMATOCRIT 32.7 % (36.0-47.0); MEAN CORPUSCULAR HEMOGLOBIN 29.4 pg (27.0-33.4); MEAN CORPUSCULAR HGB CONC 33.7 g/dL (32.0-36.0); MEAN CORPUSCULAR VOLUME 87 fl (80-97); PLATELET COUNT 395 10^3/uL (150-450); RED BLOOD COUNT 3.76 10^6/uL (3.72-5.28); RED CELL DISTRIBUTION WIDTH 15.4 % (11.5-14.0); WHITE BLOOD COUNT 4.8 10^3/uL (4.0-10.5)
[2020-02-21 09:45] LABS: APPEARANCE,URINE SLIGHTLY-CLOUDY; BILIRUBIN,URINE NEGATIVE (NEGATIVE); COLOR,URINE YELLOW; GLUCOSE, URINE NEGATIVE (NEGATIVE); KETONES,URINE NEGATIVE (NEGATIVE); LEUKOCYTE ESTERASE,URINE SMALL (NEGATIVE); NITRITE,URINE NEGATIVE (NEGATIVE); PROTEIN,URINE 30 mg/dL (NEGATIVE); URINE SPECIFIC GRAVITY 1.024
[2020-02-21 10:09] LABS: ALBUMIN 4.3 g/dL (3.5-5.0); ALKALINE PHOSPHATASE 74 U/L (38-126); ANION GAP 12 (5-19); ASPARTATE AMINO TRANSFERASE 28 U/L (14-36); BILIRUBIN,DIRECT 0.3 mg/dL (0.0-0.4); BILIRUBIN,TOTAL 1.2 mg/dL (0.2-1.3); BLOOD UREA NITROGEN 9 mg/dL (7-20); CALCIUM 9.7 mg/dL (8.4-10.2); CARBON DIOXIDE 25 mmol/L (22-30); CHLORIDE 101 mmol/L (98-107); GLUCOSE 105 mg/dL (75-110); POTASSIUM 3.8 mmol/L (3.6-5.0); TOTAL PROTEIN 7.3 g/dL (6.3-8.2)
[~2020-02-24 05:20] MED LIST: CEFAZOLIN 1 GM/D5W RTU 1 GM/50 ML RTUPB IV ONE; CEFAZOLIN 1 GM/D5W RTU 1 GM/50 ML RTUPB IV PRN; LACTATED RINGERS 1000 ML IV PRN; LIDOCAINE 0.5% INJ-PF (5 MG/ML) 50 ML SDV SUBCUT PRN; RINGERS SOLUTION,LACTATED 1,000 ML IV PRN
[2020-02-24] MEDS ORDERED: FENTANYL CITRATE INJ/PF 100 MCG/2 ML AMPUL ONE (06:57)
[2020-02-24] MEDS ORDERED: MIDAZOLAM 2 MG/2 ML INJ ONE (06:58)
[2020-02-24] MEDS ORDERED: HYDROMORPHONE HCL INJ/PF 2 MG/ML AMPULE ONE (06:58)
[2020-02-24] MEDS ORDERED: PROPOFOL INJ 200 MG/20 ML VIAL IV ONE (06:58)
[2020-02-24] MEDS ORDERED: MEPERIDINE HCL/PF INJ 25 MG/1 ML DISP.SYRIN IV PRN (08:34)
[2020-02-24] MEDS ORDERED: FENTANYL CITRATE INJ/PF 100 MCG/2 ML AMPUL IV PRN ×3 (08:34)
[2020-02-24] MEDS ORDERED: DIPHENHYDRAMINE HCL 50 MG/ML VIAL IV PRN (08:34)
[2020-02-24] MEDS ORDERED: PROMETHAZINE HCL INJ 25 MG/1 ML VIAL IV PRN ×2 (08:34)
[2020-02-24] MEDS ORDERED: RINGERS SOLUTION,LACTATED 1,000 ML IV PRN (09:19)
[2020-02-24] MEDS ORDERED: SIMETHICONE 80 MG TAB.CHEW PO PRN (09:19)
[2020-02-24] MEDS ORDERED: ACETAMINOPHEN 325 MG TABLET PO PRN (09:19)
[2020-02-24] MEDS ORDERED: DIPH/PERTUSS(ACELL)/TETANUS VAC/PF 0.5 ML SYR (>=10YO) IM PRN (09:19)
[2020-02-24] MEDS ORDERED: MORPHINE SULFATE 10 MG/ML INJ IV PRN (09:19)
[2020-02-24] MEDS ORDERED: OXYCODONE-ACETAMINOPHEN 5-325 MG TABLET PO PRN (09:19)
[2020-02-24] MEDS ORDERED: MEASLES,MUMPS&RUBELLA VACC/PF 0.5 ML VIAL SUBCUT PRN (09:19)
[2020-02-24] MEDS ORDERED: ACETAMINOPHEN 1,000 MG/100 ML RTUPB IV PRN (09:19)
--- NOTE | 2020-02-24 09:25 | Operative Report ---
Operative Report DATE OF SURGERY: 02/24/20 PREOPERATIVE DIAGNOSIS: Abnormal uterine bleeding, anemia, pelvic pain and pres sure POSTOPERATIVE DIAGNOSIS: Same and adenomyosis OPERATION: Robotic assisted total laparoscopic hysterectomy with bilateral salpingectomy SURGEON: CHARBEL MONGE 1ST FITTING ROOM MAINTENANCE MECHANIC: KENNETH LEHMAN 2ND Spot Cleaner: MOHSEN ORTIZ TISSUE REMOVED OR ALTERED: Uterus cervix bilateral fallopian tubes COMPLICATIONS: None ESTIMATED BLOOD LOSS: 100 cc INTRAOPERATIVE FINDINGS: Enlarged boggy appearing uterus consistent with adenomyosis, this was approximately 14 weeks size, fallopian tubes with evidence of bilateral tubal ligation, normal ovaries PROCEDURE: Patient was taken to the operating room prepared and draped in normal sterile fashion in dorsolithotomy position. Under sterile conditions a Barahona catheter was placed to gravity. Speculum was placed into the vagina and the cervix was grasped on the anterior lip with a single-tooth tenaculum. The cervix was then dilated to accommodate a medium V care uterine manipulator. Manipulate it was pl aced gloves were changed and attention was turned to the upper portion of the case. A 2-1/2 cm umbilical skin incision was made 11 blade and this was carried through to the underlying layer of fascia with the same 11 blade. It was grasped to Sandra's acted with Govind's. New cavity was entered bluntly. A GelPort was placed in a normal fashion the camera port and air seal in the appropriate locations. Tamayo was then inflated with approximately 2 L of CO2 gas. The camera was then introduced into the peritoneal cavity through the camera port and the patient was placed in steep Trendelenburg. The above findings were noted. Under direct visualization two 5 mm ports were placed approximately 10 cm on either side of the umbilicus. The robot was then docked with the vessel sealer placed on the patient's left and the monopolar scissors placed placed on the patient's right. I then unscrubbed and set at the robotic console beginning with the left adnexa fallopian tube was transected from the uterus using the vessel sealer and monopolar scissors as needed. The fallopian tube was then removed through the assistance port. The ovarian ligament was then transected using the vessel sealer. The uterine artery was skeletonized using blunt dissection and ligated using the vessel sealer down to the level of the external cervical os. The bladder flap was then begun using monopolar scissors and blunt dissection over the V care cup noted through the mucosa. Attention was then turned to the right adnexa where the fallopian tube was transected in a similar fashion. The utero-ovarian ligament was transected using the vessel sealer. The Uterine artery was then transected using the vessel sealer and skeletonized using blunt dissection. The vessel sealer was again used to completely transect the uterine artery down to the level of the external cervical os. The bladder flap was completed using similar sharp and blunt dissection. Once the bladder was felt to be adequately away from the lower uterine segment, the colpotomy was begun on the anterior aspect of the cervix following the outline of the V care cup mucosa. The cup was followed in a circumferential fashion completely around the cervix estimate was completely freed. The specimen was then removed through the vaginal defect. The instruments were then changed to a Himanshu needle route driver salesperson and pro-grasp. AV lock needle was introduced through the assistance port. The lock needle was used to close the vaginal cuff and hemostasis. The needle was then removed through the assistance port. The peritoneal cavity was carefully inspected the ureters were noted to both be peristalsing and there was no signs of hydroureter. The robot was then undocked. The fascia was closed at the umbilical skin incision seen 0 Vicryl 3 skin incisions were closed using 4-0 Vicryl. Sponge lap and needle counts were correct x2 and the patient was taken to recovery in stable condition.
[2020-02-24] MEDS ORDERED: DEXAMETHASONE SOD PHOSPHATE INJ 4 MG/1 ML VIAL ONE (10:59)
[2020-02-24] MEDS ORDERED: KETOROLAC TROMETHAMINE 60 MG/2 ML SDV ONE (10:59)
[2020-02-24] MEDS ORDERED: GLYCOPYRROLATE 1 MG/5 ML VIAL ONE (10:59)
[2020-02-24] MEDS ORDERED: ONDANSETRON HCL INJ/PF 4 MG/2 ML SDV ONE (10:59)
[2020-02-24] MEDS ORDERED: LIDOCAINE 2% INJ-PF (20 MG/ML) 2 ML AMPUL ONE (10:59)
[2020-02-24] MEDS ORDERED: NEOSTIGMINE METHYLSULFATE 10 MG/10 ML VIAL ONE (10:59)
[2020-02-24] MEDS ORDERED: ROCURONIUM BROMIDE INJ 50 MG/5 ML VIAL IV ONE (10:59)
[2020-02-24] MEDS: KETOROLAC TROMETHAMINE INJ/PF 30 MG/1 ML SDV IV SCH ×2 (11:10→17:10)
[2020-02-24] MEDS: DOCUSATE SODIUM 100 MG CAPSULE PO SCH ×2 (13:29→17:10)
[2020-02-24] MEDS: PRENATAL VITAMIN W DHA CAPSULE PO SCH (13:30)
[2020-02-24] MEDS: PROMETHAZINE HCL INJ 25 MG/1 ML VIAL IV PRN ×2 (13:46→20:37)
[2020-02-24] MEDS: OXYCODONE-ACETAMINOPHEN 5-325 MG TABLET PO PRN (20:37)
[2020-02-25] MEDS: KETOROLAC TROMETHAMINE INJ/PF 30 MG/1 ML SDV IV SCH ×2 (02:25→09:02)
[2020-02-25 07:18] LABS: HEMATOCRIT 26.9 % (36.0-47.0); HEMOGLOBIN 9.1 g/dL (12.0-15.5); MEAN CORPUSCULAR HEMOGLOBIN 29.4 pg (27.0-33.4); MEAN CORPUSCULAR VOLUME 87 fl (80-97); PLATELET COUNT 324 10^3/uL (150-450); RED BLOOD COUNT 3.11 10^6/uL (3.72-5.28); RED CELL DISTRIBUTION WIDTH 15.4 % (11.5-14.0); WHITE BLOOD COUNT 11.4 10^3/uL (4.0-10.5)
[2020-02-25] MEDS ORDERED: INFLUENZA QUAD (6MOS+) 2020-21 VAC 0.5 ML SYR IM ONE (08:00)
[2020-02-25] MEDS: OXYCODONE-ACETAMINOPHEN 5-325 MG TABLET PO PRN (08:38)
[2020-02-25] MEDS: PRENATAL VITAMIN W DHA CAPSULE PO SCH (09:02)
[2020-02-25] MEDS: DOCUSATE SODIUM 100 MG CAPSULE PO SCH (09:02)
[2020-02-25] MEDS ORDERED: NORMAL SALINE 500 ML IV ONE (11:30)
[2020-02-25] MEDS ORDERED: IBUPROFEN 800 MG TABLET PO SCH (12:00)
--- NOTE | 2020-02-25 12:24 | PDOC DISCHARGE SUMMARY ---
Impression - Admit/DC Date/PCP Admission Date/Primary Care Provider: HARRISON ALEJANDRO MD Discharge Date: 02/25/20 - Discharge Diagnosis (1) Abnormal uterine and vaginal bleeding, unspecified Is this a current diagnosis for this admission?: Yes (2) Anemia Is this a current diagnosis for this admission?: Yes (3) Pelvic pain Is this a current diagnosis for this admission?: Yes (4) Adenomyosis Is this a current diagnosis for this admission?: Yes - Assessment Summary: pt underwent RATLH w/ b/l salpingectomy. Postoperative course significant for some mild nausea and bladder hesitation. She is now voiding without difficulty and nausea improved. toleratting po - Additional Information Resuscitation Status: Full Code Discharge Diet: As Tolerated Discharge Activity: Balance Activity w/Rest, No Lifting Over 10 Pounds, No Lifting/Push/Pulling, Pelvic Rest, No tub bath Referrals: HARRISON ALEJANDRO MD [Primary Care Provider] - CHARBEL MONGE MD [ACTIVE STAFF] - 03/08/20 8:00 am (CALL THE OFFICE FOR ANY QUESTIONS OR CONCERNS) Prescriptions: Oxycodone HCl/Acetaminophen [Percocet 5-325 mg Tablet] 1 tab PO Q4HP PRN #30 tablet PRN Reason: Ondansetron HCl [Zofran 8 mg Tablet] 8 mg PO Q8HP PRN #30 tablet PRN Reason: For Nausea/Vomiting Docusate Sodium [Colace 100 mg Capsule] 100 mg PO BID #60 capsule Ibuprofen [Motrin 800 mg Tablet] 800 mg PO Q8H #60 tablet Home Medications: Meloxicam [Mobic] 7.5 mg PO DAILY MDD 15 MG 02/21/20 Gabapentin [Neurontin 100 mg Capsule] 100 mg PO QHS 02/24/20 Docusate Sodium [Colace 100 mg Capsule] 100 mg PO BID #60 capsule 02/25/20 Ibuprofen [Motrin 800 mg Tablet] 800 mg PO Q8H #60 tablet 02/25/20 Ondansetron HCl [Zofran 8 mg Tablet] 8 mg PO Q8HP PRN #30 tablet 02/25/20 Oxycodone HCl/Acetaminophen [Percocet 5-325 mg Tablet] 1 tab PO Q4HP PRN #30 tablet 02/25/20 History of Present Illiness History of Present Illness: CHEMA SADLER is a 44 year old female Physical Exam - Physical Exam Vital Signs: Temp Pulse Resp BP Pulse Ox 98.6 F 77 20 101/61 96 02/25/20 08:00 02/25/20 08:00 02/25/20 08:00 02/25/20 08:00 02/25/20 08:00 Intake & Output 02/24/20 02/25/20 02/26/20 06:59 06:59 06:59 Intake Total 0 1650 300 Output Total 210 600 Balance 0 1440 -300 Weight 107.05 kg 109.5 kg Results Laboratory Results: WBC 11.4 10^3/uL (4.0-10.5) H 02/25/20 06:55 RBC 3.11 10^6/uL (3.72-5.28) L 02/25/20 06:55 Hgb 9.1 g/dL (12.0-15.5) L 02/25/20 06:55 Hct 26.9 % (36.0-47.0) L 02/25/20 06:55 MCV 87 fl (80-97) 02/25/20 06:55 MCH 29.4 pg (27.0-33.4) 02/25/20 06:55 MCHC 34.0 g/dL (32.0-36.0) 02/25/20 06:55 RDW 15.4 % (11.5-14.0) H 02/25/20 06:55 Plt Count 324 10^3/uL (150-450) 02/25/20 06:55 Sodium 137.8 mmol/L (137-145) 02/21/20 09:05 Potassium 3.8 mmol/L (3.6-5.0) 02/21/20 09:05 Chloride 101 mmol/L (98-107) 02/21/20 09:05 Carbon Dioxide 25 mmol/L (22-30) 02/21/20 09:05 Anion Gap 12 (5-19) 02/21/20 09:05 BUN 9 mg/dL (7-20) 02/21/20 09:05 Creatinine 1.00 mg/dL (0.52-1.25) 02/21/20 09:05 Est GFR ( Amer) > 60 (>60) 02/21/20 09:05 Est GFR (MDRD) Non-Af > 60 (>60) 02/21/20 09:05 Glucose 105 mg/dL (75-110) 02/21/20 09:05 Calcium 9.7 mg/dL (8.4-10.2) 02/21/20 09:05 Total Bilirubin 1.2 mg/dL (0.2-1.3) 02/21/20 09:05 Direct Bilirubin 0.3 mg/dL (0.0-0.4) 02/21/20 09:05 Neonat Total Bilirubin Not Reportable 02/21/20 09:05 Neonat Direct Bilirubin Not Reportable 02/21/20 09:05 Neonat Indirect Bili Not Reportable 02/21/20 09:05 AST 28 U/L (14-36) 02/21/20 09:05 ALT 17 U/L (<35) 02/21/20 09:05 Alkaline Phosphatase 74 U/L (38-126) 02/21/20 09:05 Total Protein 7.3 g/dL (6.3-8.2) 02/21/20 09:05 Albumin 4.3 g/dL (3.5-5.0) 02/21/20 09:05 Serum HCG, Qual NEGATIVE (NEGATIVE) 02/24/20 06:07 Urine Color YELLOW 02/21/20 09:00 Urine Appearance SLIGHTLY-CLOUDY 02/21/20 09:00 Urine pH 6.0 (5.0-9.0) 02/21/20 09:00 Ur Specific [place] 1.024 02/21/20 09:00 Urine Protein 30 mg/dL (NEGATIVE) H 02/21/20 09:00 Urine Glucose (UA) NEGATIVE mg/dL (NEGATIVE) 02/21/20 09:00 Urine Ketones NEGATIVE mg/dL (NEGATIVE) 02/21/20 09:00 Urine Blood NEGATIVE (NEGATIVE) 02/21/20 09:00 Urine Nitrite NEGATIVE (NEGATIVE) 02/21/20 09:00 Urine Bilirubin NEGATIVE (NEGATIVE) 02/21/20 09:00 Urine Urobilinogen 4.0 mg/dL (<2.0) H 02/21/20 09:00 Ur Leukocyte Esterase SMALL (NEGATIVE) H 02/21/20 09:00 Urine WBC (Auto) 3 /HPF 02/21/20 09:00 Urine RBC (Auto) 3 /HPF 02/21/20 09:00 Squamous Epi Cells Auto 8 /HPF 02/21/20 09:00 Urine Mucus (Auto) RARE /LPF 02/21/20 09:00 Urine Ascorbic Acid NEGATIVE (NEGATIVE) 02/21/20 09:00 COVID-19 Source See comment 02/21/20 09:10 COVID-19 ([facility]) Not Detected (Not Detect) 02/21/20 09:10 Blood Type O POSITIVE 02/21/20 09:05 Antibody Screen NEGATIVE 02/21/20 09:05 Stroke Is this a Stroke Patient?: No Acute Heart Failure Is this a Heart Failure Patient?: No
[2020-02-25 13:39] VITALS: BP 101/61
== END 2020-02-25 14:15 | disposition home or self-care (01) ==
LOC: OROUT 05:20 → 2N 10:50 → OROUT 02-25 14:15
PROVIDERS: ATTEND Obstetrics & Gynecology
DX: N93.9 Abnormal uterine and vaginal bleeding, unspecified (principal); D64.9 Anemia, unspecified; N80.0 Endometriosis of uterus; N84.0 Polyp of corpus uteri; N87.9 Dysplasia of cervix uteri, unspecified; N83.8 Other noninflammatory disorders of ovary, fallopian tube and broad ligament; R10.2 Pelvic and perineal pain; K91.89 Other postprocedural complications and disorders of digestive system; N92.0 Excessive and frequent menstruation with regular cycle; R11.0 Nausea; N99.89 Other postprocedural complications and disorders of genitourinary system; R39.11 Hesitancy of micturition; Y83.8 Other surgical procedures as the cause of abnormal reaction of the patient, or of later complication, without mention of misadventure at the time of the procedure; Z98.51 Tubal ligation status; Z90.49 Acquired absence of other specified parts of digestive tract; Z23 Encounter for immunization; Z20.828 Contact with and (suspected) exposure to other viral communicable diseases
CPT/HCPCS: 58571; 86900; 86901; 36415 ×2; 86850; 84703; 85027 ×2; 87635; 80053; 81001; 88307 ×2; 90686; 94799; 00840; G0008; C1758; A4649; J2250; J0690; J3490 ×6; J1100; J1885 ×3; J3010; J2710; J1170; J2550; J2405; J7040; J7120; J2704; C9803; 840; 90471